=== PATIENT | female | born 1960 | race African-American/Black ===

== ENCOUNTER 2018-02-12 18:32 | Emergency (ER) | END 2018-02-12 22:05 | disposition home or self-care (01) ==

== ENCOUNTER 2018-02-20 11:02 | Emergency (ER) | END 2018-02-20 11:31 | disposition home or self-care (01) ==

== ENCOUNTER 2018-10-27 09:59 | Inpatient (IN) | payer OTHER ==
[2018-10-27] VITALS (26 sets, daily range): BP systolic 118–165; BP diastolic 61–95; PULSE 56–78; RESP 14–48; Ht 162.6 cm; Wt 60.0 kg
[~2018-10-27] VITALS: Ht 162.6 cm; Wt 60.0 kg
[~2018-10-27 09:59] MED LIST: BACI28.34 TOP; CHOL100062 PO; FOLI-49 PO; HYDR-4011 PO; MET25 PO; PRED2.5T3 PO; SOD CHLORIDE 0.9% 1,000 ML IV SCH
[2018-10-27] MEDS ORDERED: FER325 PO (10:42)
[2018-10-27] MEDS ORDERED: PRED2.5T3 PO (10:42)
[2018-10-27] MEDS ORDERED: FOLI-49 PO (10:43)
[2018-10-27] MEDS ORDERED: OMEP40CA6 PO (10:43)
[2018-10-27] MEDS ORDERED: MET25 PO (10:45)
[2018-10-27] MEDS ORDERED: ASCO500C7 PO (10:46)
[2018-10-27] MEDS ORDERED: ERGO500013 PO (10:46)
[2018-10-27] MEDS ORDERED: IBUP-1542 PO (10:47)
[2018-10-27] MEDS ORDERED: CLINDAMYCIN 600 MG/D5W (PMX) 50 ML IVPB SCH (11:00)
[2018-10-27] MEDS ORDERED: SOD CHLORIDE 0.9% 1,000 ML IV SCH (11:00)
--- NOTE | 2018-10-27 12:19 | PREAC ---
Date/Time of Note Date/Time of Note DATE: 10/27/18 TIME: 12:17 Anesthesia Eval and Record Evaluation Time Pre-Procedure Interview DATE: 10/27/18 TIME: 12:17 Age 58 Sex female NPO: 8 hrs Preoperative diagnosis Cholelithiasis Planned procedure Laparoscopic Cholecystectomy Past Medical History Past Medical History: Includes Musculoskeletal: Rheumatoid arthritis Surgery & Anesthesia Issues No known issue Meds Anticoagulation: No Beta Lio within 24 hr: No Reason Beta Lio not given: Pt. not on B-Lio Reported Medications Ibuprofen* (Motrin*) 600 Mg Tab, 600 MG PO BID PRN for PAIN, TAB 10/27/18 Ascorbic Acid* (Vitamin C*) 500 Mg Capsule.sa, 500 MG PO DAILY, CAP 10/27/18 Ergocalciferol (Vitamin D2) (VITAMIN D2) 50,000 Unit Capsule, 66568 UNIT PO EVERY THURSDAY, CAP 10/27/18 Methotrexate* (Methotrexate*) 2.5 Mg Tab, 15 MG PO EVERY THURSDAY, TAB 10/27/18 Folic Acid* (Folic Acid*) 1 Mg Tablet, 1 MG PO DAILY, TAB 10/27/18 Omeprazole* (Omeprazole*) 40 Mg Capsule.dr, 40 MG PO DAILY, #30 CAP 10/27/18 Ferrous Sulfate* (Ferrous Sulfate*) 325 Mg Tabec, 325 MG PO DAILY, TAB 10/27/18 Prednisone* (Prednisone*) 2.5 Mg Tablet, 2.5 MG PO DAILY, TAB 10/27/18 Discontinued Reported Medications Methotrexate* (Methotrexate*) 2.5 Mg Tab, 5 MG PO TID, TAB 06/01/15 Prednisone* (Prednisone*) 2.5 Mg Tablet, 7.5 MG PO DAILY, TAB 06/01/15 Cholecalciferol* (Vitamin D3*) 1,000 Unit Tablet, 1000 UNIT PO q week 05/17/13 Folic Acid* (Folic Acid*) 1 Mg Tablet, 1 MG PO DAILY 05/17/13 Discontinued Scripts Bacitracin* (Bacitracin Zinc Oint*) 28.35 Gm Oint, 1 APPLIC TOP BID, #1 TUB APPLI TO Prov:LIBERTAD GOMEZ PA-C 02/12/18 Hydrocodone/Acetaminophen ([place] 5-325 Tablet) 1 Each Tablet, 1 TAB PO Q6H PRN for PAIN, #7 TAB Prov:LIBERTAD GOMEZ PA-C 02/12/18 Current Medications Clindamycin HCl/ Dextrose 50 ml @ 100 mls/hr ONCE IVPB ; Start 10/27/18 at 11:00; Stop 10/27/18 at 16:00 Sodium Chloride 1,000 ml @ 75 mls/hr [id number] IV ; Start 10/27/18 at 11:00 Meds reviewed: Yes Allergies Coded Allergies: levofloxacin (Verified Allergy, Intermediate, Itching, 10/27/18) ondansetron (Unverified Allergy, Intermediate, "tongue swollen", 10/27/18) RE-ENTERED UNCODED ALLERGY CODED Penicillins (Verified Allergy, Unknown, tongue swelling, 10/27/18) Sulfa (Sulfonamide Antibiotics) (Unverified Allergy, Unknown, "swelling", 10/27/18) RE-ENTERED UNCODED ALLERGY CODED Allergies Reviewed: Yes Labs/Studies Labs Reviewed: Reviewed by anesthesiologist Result Diagram: 10/27/18 1100 Laboratory Tests 10/27/18 11:00 test: N/A Studies: ECG (NSR), CXR (n/a) Pre-procedure Exam Last vitals Vital Signs Date Temp Pulse Resp B/P (MAP) Pulse Ox O2 O2 Flow FiO2 Time Delivery Rate 10/27/18 99.0 69 16 118/69 100 Room Air 11:17 (85) Airway: Adequate mouth opening, Adequate thyromental dist Mallampati: Mallampati II Teeth: Normal Lung: Normal Heart: Normal ASA Physical Status ASA physical status: 2 Emergency: None Planned Anesthetic General/MAC: ETT Nerve block: TAP (bilateral) Planned Pain Management Single shot nerve block, Parenteral pain med Pre-operative Attestations Prior to commencing anesthesia and surgery, the patient was re-evaluated, there was verification of: *The patient's identity *The results of appropriate recent lab work and preoperative vital signs *The above evaluation not changing prior to induction *Anesthetic plan, risk benefits, alternative and complications discussed with patient/family; questions answered; patient/family understands, accepts and wishes to proceed. EDGAR WHYTE MD Oct 27, 2018 12:19
[2018-10-27] MEDS ORDERED: BUPIVACAINE 0.25% (MPF) 30 ML INJ ONE (12:22)
[2018-10-27] MEDS ORDERED: MEPERIDINE 25 MG INJ IV PRN (12:30)
[2018-10-27] MEDS ORDERED: DIPHENHYDRAMINE 50 MG INJ IV PRN (12:30)
[2018-10-27] MEDS ORDERED: LABETALOL HCL 20MG INJ IV PRN (12:30)
[2018-10-27] MEDS ORDERED: FENTAnyl 50 MCG/ML VIAL IV PRN ×2 (12:30)
[2018-10-27] MEDS ORDERED: ONDANSETRON 4 MG INJ IV PRN (12:30)
[2018-10-27] MEDS ORDERED: EPHEDrine SULFATE 50 MG/5 ML SYG IV PRN (12:30)
[2018-10-27] MEDS ORDERED: OXYCODONE/ACETAMINOPHEN (5/325) TAB PO PRN (12:30)
[2018-10-27] MEDS ORDERED: METOCLOPRAMIDE 10 MG INJ IV PRN (12:30)
[2018-10-27] MEDS ORDERED: HYDROmorphONE 1 MG/5 ML IV SYRINGE IV PRN ×2 (12:30)
[2018-10-27] MEDS ORDERED: FENTAnyl 50 MCG/ML VIAL ONE ×2 (12:31→15:13)
[2018-10-27] MEDS ORDERED: CEFAZOLIN 1 GM INJ ONE (12:31)
[2018-10-27] MEDS ORDERED: PROPOFOL 20 ML ONE (12:31)
[2018-10-27] MEDS ORDERED: ROCURONIUM 50 MG INJ ONE (12:31)
[2018-10-27] MEDS ORDERED: MIDAZOLAM 1 MG/ML 2 ML INJ ONE (12:31)
[2018-10-27] MEDS ORDERED: ROPIVACAINE 0.2% 20 ML VIAL ONE (12:32)
[2018-10-27] MEDS ORDERED: HYDROCORTISONE 100 MG INJ ONE (12:39)
--- NOTE | 2018-10-27 13:08 | HPN ---
Date/Time of Note Date/Time of Note DATE: 10/27/18 TIME: 13:08 Interval H&P Admission Note Pt. seen H&P reviewed: No system changes ANANTH JARAMILLO MD Oct 27, 2018 13:08
[2018-10-27] MEDS ORDERED: METOCLOPRAMIDE 10 MG INJ ONE (14:39)
[2018-10-27] MEDS ORDERED: DEXAMETHASONE 4 MG/ML 5 ML INJ ONE (14:39)
[2018-10-27] MEDS ORDERED: ONDANSETRON 4 MG INJ ONE (14:39)
[2018-10-27] MEDS ORDERED: SUGAMMADEX SODIUM 200 MG/2 ML VIAL IV ONE (15:31)
--- NOTE | 2018-10-27 15:49 | PAC ---
Date/Time of Note Date/Time of Note DATE: 10/27/18 TIME: 15:49 Post-Anesthesia Notes Post-Anesthesia Note Last documented vital signs T: 98.0 Activity: WNL Respiratory function: WNL Cardiovascular function: WNL Mental status: Baseline Pain reasonably controlled: Yes Hydration appropriate: Yes Nausea/Vomiting absent: Yes EDGAR WHYTE MD Oct 27, 2018 15:49
[2018-10-27] MEDS: FENTAnyl 50 MCG/ML VIAL IV PRN ×2 (15:53→17:17)
--- NOTE | 2018-10-27 15:57 | OPR ---
Date/Time of Note Date/Time of Note DATE: 10/27/18 TIME: 15:43 Operative Report Procedure Date: Oct 27, 2018 Preoperative Diagnosis 1. Chronic cholecystitis/cholelithiasis Postoperative Diagnosis 1. Chronic cholecystitis/cholelithiasis 2. Chylous ascites 3. Transverse colon nodules Operation/Procedure Performed 1. Diagnostic laparoscopy 2. Exploratory laparotomy 3. Drainage of chylous ascites 4. Biopsy of transverse colon mesenteric nodules x3 5. Open cholecystectomy Surgeon see signature line Joint Cutter Raul Odell MD Second Joint Cutter: LIUDMILA LIMON Anesthesia Type: general Anesthesiologist: EDGAR WHYTE MD Estimated Blood Loss: minimal Transfusion none Specimen 1. Gallbladder 2. Transverse colon mesentery biopsies x3 3. Cytology chylous ascites Grafts/Implants none Complications none Pt Condition Post Procedure: stable Disposition: PACU Indications The patient is a 58-year-old female with a history of rheumatoid arthritis on chronic prednisone as well as hysterectomy and tubal ligation who presented to the office with right upper quadrant abdominal pain. The patient had clinical signs and symptoms of chronic cholecystitis and biliary colic which was confirmed via an ultrasound which showed the presence of gallstones. The patient was scheduled for laparoscopic cholecystectomy; possible open as definitive treatment to prevent further sequelae of gallstone disease which include but are not limited to: Gangrenous cholecystitis, choledocholithiasis, gallstone pancreatitis, ascending cholangitis, etc. All risks and benefits of the procedure including but not limited to: Wound infection, excessive bleeding, common bile duct injury, postoperative biliary leak, retained common bile duct stone, injury to intra-abdominal organs, conversion to open procedure, possible need for subsequent surgeries, etc. were all explained to the patient in full detail. She fully understood and wished to proceed with the procedure. Informed consent was therefore obtained. Procedure Description The patient was brought to the operating room and placed supine on the operating table. Bilateral sequential compression devices were placed on both lower extremities. A dose of broad-spectrum perioperative intravenous antibiotics was given. After the induction of smooth general endotracheal anesthesia the patient's abdomen was prepped and draped in the standard surgical fashion. The patient had a lower midline incision from her prior surgery. After performance of the surgical timeout a 1 cm incision was made inferior to the umbilicus in the area of the prior incision. Incision was carried down through the skin and subcutaneous tissues to the level of the anterior rectus fascia. Anterior rectus fascia was then grasped between 2 [place] clamps and incised using an 11 blade scalpel. The peritoneum was then entered atraumatically. A 12 mm trocar was then placed through the incision site. Pneumoperitoneum was then obtained. Diagnostic laparoscopy showed the abdomen to be filled diffusely with milky fluid. There were adhesions visualized. The gallbladder could not be visualized. At this point it was decided to perform an expiratory laparotomy. Pneumoperitoneum was released and the 12 mm trocar was withdrawn. The patient's prior midline incision was opened using a 10 blade scalpel and extended to the superior to the umbilicus. Incision was carried down through the skin and subcutaneous tissues to the anterior rectus fascia which was incised. The peritoneum was entered atraumatically. Approximately 1.5 L of thick milky fluid which resembled chyle was aspirated. At this point assistance was called for from Dr. Raul Odell who then scrubbed in and assisted. Intraoperative pathological consultation was called for cytological analysis of the fluid. There was no malignant cells identified. Once all the fluid was suctioned out attempts were made to run the small bowel. There was reactive inflammation throughout the peritoneal cavity of the small and large intestine as well as the stomach and the gallbladder which was identified in the right upper quadrant. There were perihepatic adhesions to the surface of the liver to the anterior abdominal wall. A portion of the small bowel and large bowel that was run and examined did not show any injury. There were no enteric contents in the abdominal cavity. There is no evidence of infection in the abdominal cavity. A few small fibrotic-looking nodules were identified in the transverse colon mesentery. These were biopsied. Frozen section was performed by the pathologist and was shown to contain fibrous tissues without any malignancy. The uterus and bilateral fallopian tubes were absent. There was no other pathology grossly identified within the abdominal cavity. At this point it was decided to perform the cholecystectomy. The gallbladder was mobilized from the top down using a combination of Bovie electrocautery and hand-held LigaSure device. Dissection was taken down to the level of the gallbladder neck. Gallstones were palpated within the gallbladder. Bleeders were ligated using combination of hemoclips and Bovie electrocautery. Once we reached the neck of the gallbladder and the cystic duct structures were encircled using a right angle clamp. Clips were placed proximally and the distal cystic duct and artery were transected en bloc using firing of the SHAYNE stapler. The gallbladder was then passed off the field specimen. The abdomen was then copiously irrigated in all 4 quadrants using several liters of warm irrigation until the irrigant returned clear. Hemostasis was inspected for and noted to be adequate. Fibrillar was placed in the gallbladder fossa to aid in further hemostasis. The anterior rectus fascia was then reapproximated using a #1 looped PDS suture in running fashion. Subcutaneous tissues were irrigated with more warm normal saline. The skin was reapproximated using skin marcia. The incision was cleaned and sterile dressings were applied. The patient was awoken from anesthesia and transported to the recovery room in stable condition. All counts were correct at the end of the case x 2. ANANTH JARAMILLO MD Oct 27, 2018 15:56
[2018-10-27] MEDS ORDERED: morphine 2 MG INJ IV PRN (16:00)
[2018-10-27] MEDS ORDERED: ACETAMINOPHEN 325 MG TAB PO PRN (16:00)
[2018-10-27] MEDS: HYDROmorphONE 1 MG/5 ML IV SYRINGE IV PRN ×2 (16:24→17:54)
--- NOTE | 2018-10-27 18:11 | HP ---
Date/Time of Note Date/Time of Note DATE: 10/27/18 TIME: 18:02 Assessment/Plan VTE Prophylaxis Risk score (from Ns)>0 risk: 6 SCD applied (from Ns): Yes Pharmacological prophylaxis: NA/contraindicated Pharm contraindication: surgical contra Lines/Catheters [facility] Peripheral IV Assessment/Plan Assessment/Plan - Chronic cholecystitis/cholelithiasis, Chylous ascites, Transverse colon nodules. S/p diagnostic laparoscopy, exploratory laparotomy, drainage of chylous ascites, biopsy of transverse colon mesenteric nodules and open cholecystectomy by on 10/27/2018. Continue IV fluids and postoperative antibiotic, pain management, patient is n.p.o., advance diet per surgery. - Rheumatoid arthritis, patient is on prednisone and methotrexate. Further recommendations based on clinical course. Plan of care discussed with Dr. Pruitt. Result Diagram: 10/27/18 1100 Results 24hrs Laboratory Tests Test 10/27/18 11:00 Sodium Level 145 H Potassium Level 3.5 Chloride Level 108 Carbon Dioxide Level 27 Anion Gap 10 Blood Urea Nitrogen 14 Creatinine 0.60 Est Glomerular Filtrat Rate mL/min > 60 Glucose Level 88 Calcium Level 9.2 HPI/ROS Admit Date/Time Admit Date/Time Oct 27, 2018 at 15:43 Hx of Present Illness The patient is a 58-year-old female with history of rheumatoid arthritis on prednisone at home. Patient was evaluated in general surgery consultation for right upper quadrant abdominal pain. Patient symptoms consistent with chronic cholecystitis and biliary colic's. Ultrasound revealed presence of gallstones. Patient was brought to the hospital and underwent diagnostic laparoscopy, exploratory laparotomy, drainage of chylous ascites, biopsy of transverse colon mesenteric nodules and open cholecystectomy by Dr. Wright. Postoperatively patient complains of significant abdominal pain. Patient will be admitted for further evaluation and management. ROS 12 point review of systems is negative except for what mentioned in HPI PMH/Family/Social Past Medical History Medical History: other (Rheumatoid arthritis) Medications Current Medications Hydromorphone HCl (Dilaudid) 0.2 mg PACU PRN IV MILD PAIN LEVEL 1-3 Last administered on 10/27/18at 17:54; Admin Dose 0.2 MG; Start 10/27/18 at 12:30; Stop 10/27/18 at 20:00 Hydromorphone HCl (Dilaudid) 0.4 mg PACU PRN IV MODERATE PAIN LEVEL 4-6; Start 10/27/18 at 12:30; Stop 10/27/18 at 20:00 Hydromorphone HCl (Dilaudid) 0.6 mg PACU PRN IV SEVERE PAIN LEVEL 7-10; Start 10/27/18 at 12:30; Stop 10/27/18 at 20:00 Fentanyl (Sublimaze) 25 mcg PACU ORDER PRN IV MILD PAIN LEVEL 1-3; Start 10/27/18 at 12:30; Stop 10/27/18 at 20:00 Fentanyl (Sublimaze) 50 mcg PACU ORDER PRN IV MODERATE PAIN LEVEL 4-6 Last administered on 10/27/18at 17:17; Admin Dose 50 MCG; Start 10/27/18 at 12:30; Stop 10/27/18 at 20:00 Fentanyl (Sublimaze) 75 mcg PACU ORDER PRN IV SEVERE PAIN LEVEL 7-10; Start 10/27/18 at 12:30; Stop 10/27/18 at 20:00 Oxycodone/ Acetaminophen (Percocet (5/ 325)) 1 tab PACU ORDER PRN PO PAIN LEVEL 1-5; Start 10/27/18 at 12:30; Stop 10/27/18 at 20:00 Metoclopramide HCl (Reglan) 10 mg PACU ORDER PRN IV NAUSEA AND/OR VOMITING Last administered on 10/27/18at 15:53; Admin Dose 10 MG; Start 10/27/18 at 12:30; Stop 10/27/18 at 20:00 Labetalol HCl (Labetalol) 5 mg PACU ORDER PRN IV ELEVATED BLOOD PRESSURE; Start 10/27/18 at 12:30; Stop 10/27/18 at 20:00 Ephedrine Sulfate 5 mg PACU ORDER PRN IV BLOOD PRESSURE SUPPORT; Start 10/27/18 at 12:30; Stop 10/27/18 at 20:00 Meperidine HCl (Demerol) 25 mg PACU ORDER PRN IV POST OPERATIVE SHIVERING Last administered on 10/27/18at 15:58; Admin Dose 25 MG; Start 10/27/18 at 12:30; Stop 10/27/18 at 20:00 Diphenhydramine HCl (Benadryl) 25 mg PACU ORDER PRN IV PRURITUS; Start 10/27/18 at 12:30; Stop 10/27/18 at 20:00 Morphine Sulfate (morphine) 2 mg Q2H PRN IV PAIN LEVEL 6-10; Start 10/27/18 at 16:00 Oxycodone/ Acetaminophen (Percocet (5/ 325)) 1 tab Q6H PRN PO PAIN LEVEL 4-6; Start 10/27/18 at 16:00 Acetaminophen (Tylenol Tab) 650 mg Q6H PRN PO MILD PAIN(1-3)OR ELEVATED TEMP; Start 10/27/18 at 16:00 Famotidine (Pepcid Iv) 20 mg Q12 IV ; Start 10/27/18 at 21:00 Sodium Chloride 1,000 ml @ 100 mls/hr Q10H IV ; Start 10/27/18 at 15:34 Oxycodone/ Acetaminophen (Percocet (5/ 325)) 2 tab Q4H PRN PO MODERATE PAIN LEVEL 7-10; Start 10/27/18 at 16:00 Hydrocortisone (Solu-Cortef) 100 mg Q8 IV ; Start 10/27/18 at 22:00; Stop 10/28/18 at 06:01 Coded Allergies: levofloxacin (Verified Allergy, Intermediate, Itching, 10/27/18) ondansetron (Unverified Allergy, Intermediate, "tongue swollen", 10/27/18) RE-ENTERED UNCODED ALLERGY CODED Penicillins (Verified Allergy, Unknown, tongue swelling, 10/27/18) Sulfa (Sulfonamide Antibiotics) (Unverified Allergy, Unknown, "swelling", 10/27/18) RE-ENTERED UNCODED ALLERGY CODED Past Surgical History Past Surgical Hx: other (Status post cataract surgery status post tubal ligation status post partial hysterectomy, status post bilateral cataract surgery) Social History Alcohol Use: occasionally Smoking Status: Never smoker Drug Use: marijuana (Smokes marijuana occasionally) Exam/Review of Systems Vital Signs Vitals Vital Signs Date Temp Pulse Resp B/P (MAP) Pulse Ox O2 O2 Flow FiO2 Time Delivery Rate 10/27/18 74 17 145/78 100 Nasal 17:35 (100) Cannula 10/27/18 4.0 16:00 10/27/18 99.0 11:17 Intake and Output 10/26/18 10/26/18 10/27/18 1515:00 23:00 07:00 IntakeIntake Total 2200 ml BalanceBalance 2200 ml Exam Constitutional: alert, oriented Head: normocephalic Eyes: nl conjunctiva Neck: supple Respiratory: clear to auscultation Cardiovascular: regular rate and rhythm Gastrointestinal: soft, other (Status post surgery) Musculoskeletal: nl extremities to inspection Extremities: normal pulses Neurological: nl mental status Skin: nl DELMA Tavares Oct 27, 2018 18:11
[2018-10-27] MEDS: OXYCODONE/ACETAMINOPHEN (5/325) TAB PO PRN (21:14)
--- NOTE | 2018-10-27 21:18 | NUR ---
vss pt in considerable amt of pain upon waking; pain medication given mepilex dressing on abdomen; c/d/i 16:00 Dr. Wright @ bedside 16:[address] Pruitt office for consult [place] prescription in the chart along with copy 17:30 sonRaul @ bedside 18:00 NGUYỄN Martinez @ bedside to assess pt 19:30 daughter notified via phone of room number and pt's condition gave report to DORIS Kyle; he asked if I can contact Michelle ADRIAN for more pain meds for floor I paged Michelle overhead; no response; left vm for Michelle; no response room 407 still being cleaned per DORIS Kyle 20:45 room 407 ready per Kanchan, 4th floor Yuriy truong took patient to the room 407 Addendum: 10/27/18 at 2246 by PAOLO DAIGLE RN belongings sent up with Maricarmen; field secretaryKanchan confirmed receiving belongings
[2018-10-27] MEDS: morphine SULFATE/PF (2 MG/2 ML) SYG IV PRN (21:38)
[2018-10-27] MEDS: SOD CHLORIDE 0.9% 1,000 ML IV SCH ×2 (23:41→23:59)
[2018-10-27] MEDS: HYDROCORTISONE 100 MG INJ IV SCH (23:41)
[2018-10-27] MEDS: FAMOTIDINE 20 MG INJ IV SCH (23:41)
[2018-10-28 00:18] VITALS: BP 144/76; PULSE 72; RESP 18
[2018-10-28] MEDS: morphine SULFATE/PF (2 MG/2 ML) SYG IV PRN ×5 (01:54→14:03)
[2018-10-28 04:27] VITALS: BP 158/76; PULSE 66; RESP 18
[2018-10-28] MEDS: PANTOPRAZOLE (EC) 40 MG TAB PO SCH ×2 (06:00→08:41)
[2018-10-28] MEDS: HYDROCORTISONE 100 MG INJ IV SCH (06:10)
--- NOTE | 2018-10-28 06:34 | NUR ---
NRSG NOTE: PT IN BED, ASLEEP, EASILY AROUSED. AOX4. NO ACUTE DISTRESS NOTED. NO SOB. VSS. PAIN MGMT EFFECTIVE. ABD SURGICAL INCISION WITH HILDA, MEPILEX NOTED. AMBULATED TO BATHROOM. X2 STEROID DOSES ADMINISTERED AND COMPLETED. NPO OBSERVED UNTIL DINNER. PT RESTING COMFORTABLY.
[2018-10-28 07:53] VITALS: BP 139/75; PULSE 67; RESP 18
[2018-10-28] MEDS: FAMOTIDINE 20 MG INJ IV SCH ×2 (08:42→19:59)
[2018-10-28] MEDS: ASCORBIC ACID 500 MG TAB PO SCH (09:00)
[2018-10-28] MEDS: FOLIC ACID 1 MG TAB PO SCH (09:00)
[2018-10-28] MEDS ORDERED: ASCORBIC ACID 500 MG TAB PO SCH (09:00)
[2018-10-28] MEDS: FERROUS SULFATE (EC) 325 MG TAB PO SCH (09:00)
--- NOTE | 2018-10-28 09:26 | PN ---
Date/Time of Note Date/Time of Note DATE: 10/28/18 TIME: 09:23 Assessment/Plan Lines/Catheters IV [facility]ter Type (from [facility]): Peripheral IV Assessment/Plan Assessment/Plan 58-year-old female status post exploratory laparotomy, drainage of chylous ascites, cholecystectomy postop day #1 * Advance to clear liquid diet * Hep-Lock IV fluids * Out of bed/incentive spirometry/physical therapy * LFTs are okay * Etiology of chylous ascites unclear. On further questioning, patient states that after her hysterectomy which was last year she had an episode of abdominal distention for which a workup was done and 3 L of milky fluid was drained. She was told at that time that it was likely due to her rheumatoid arthritis. * Continue medical management Subjective 24 Hr Interval Summary Feeling better. Pain controlled. Afebrile. Exam/Review of Systems Vital Signs Vitals Vital Signs Date Temp Pulse Resp B/P (MAP) Pulse Ox O2 O2 Flow FiO2 Time Delivery Rate 10/28/18 98.7 67 18 139/75 96 07:53 (96) 10/27/18 Nasal 2.0 20:40 Cannula Intake and Output 10/27/18 10/27/18 10/28/18 1515:00 23:00 07:00 IntakeIntake Total 500 ml OutputOutput Total 1400 ml BalanceBalance -1400 ml 500 ml Exam Free Text/Dictation GENERAL: Awake, alert, oriented x 3. No acute distress. SKIN: No jaundice. HEENT: PERRLA, EOMI, No Scleral Icterus NECK: Supple without JVD CARDIOVASCULAR: S1S2, regular rate and rhythm. No murmurs appreciated. RESPIRATORY: Clear to auscultation bilaterally. ABDOMEN: Soft, bowel sounds present, nondistended, nontender to palpation. DRESSING: Clean, dry EXTREMITIES: Changes of rheumatoid arthritis present Results Result Diagram: 10/28/18 0444 10/28/18 0444 ANANTH JARAMILLO MD Oct 28, 2018 09:26
[2018-10-28] MEDS: SOD CHLORIDE 0.9% 1,000 ML IV SCH ×2 (11:34→21:34)
[2018-10-28] MEDS: METOCLOPRAMIDE 10 MG INJ IV PRN ×2 (12:21→19:59)
--- NOTE | 2018-10-28 13:30 | NUR ---
PT evaluation Therapy day number 1 Evaluation Start Time 13:30 Evaluation End Time 14:15 Evaluation Total Time 45 min Subjective Current complaint of pain Pain Scale NUMERIC Pain Intensity 9 (0-10) Patient Stated Goal for Pain Relief 0 (0-10) Pain Level Comment Patient premedicated per RN Pre Treatment Vital Signs Stable Yes Supine to Sit Minimum Assist Transfer Sit to Stand Ability Minimum Assist Bed Mobility Sit to Supine Minimum Assist Bed Transfer Ability Minimum Assist Chair Transfer Ability Minimum Assist Gait Assist Levels Minimum Assist Assistive Devices None Ambulation Distance 25 feet Additional Gait Comments 25' with [employer] INSTRUCTOR for unilateral support, pt presents with high guard gait Static Sitting Balance Fair Dynamic Sitting Balance Fair Standing Static Balance Fair Dynamic Standing Balance Fair Safety Judgement Fair Activity Tolerance Fair Equipment Present A pump IV pump Post Treatment Pain Intensity 9 0-10 Additional Post Treatment Comment See note Total Minutes 45 Total Units 3 PT Technical Record Comment 58 yo female presents s/p laparoscopic cholecystectomy 10/27/18 secondary to gallstone. PMH: rheumatoid arthritis Precautions: fall risk PLOF patient reports mod I at home with no AD but owns FWW and SPC. Patient lives in 2nd floor apartment with daughter and brother who are able to assist PRN. S: Pt in bed, agreeable to OOB activity with encouragement, pt cleared for activity per RN O: PT evaluation completed, pt returned back to bed in direct care of RN with all needs met and bed alarm activated. Reports of pain with mobility, no dizziness, or shortness of breath with activity. Patient educated on mobility and importance of physical therapy. Spoke to RN regarding pt response to activity and PT plan of care. A: Patient presents with fair mobility however limited secondary to pain. patient often looks for assistance if available and with upright posture presents with high guard gait. Patient requires use of UE support to maintain balance in standing, and to recommend use of FWW with nursing. Patient and RN educated on use of commode for toileting due to pain. Patient could benefit from skilled inpatient PT to improve strength, endurance, and functional mobility. P: Progress gait with SPC Recommendation: home with family assist when medically cleared by MD. Pt owns all necessary DME required for safe mobility
--- NOTE | 2018-10-28 14:31 | PN ---
Date/Time of Note Date/Time of Note DATE: 10/28/18 TIME: 14:28 Assessment/Plan VTE Prophylaxis Risk score (from Ns)>0 risk: 2 SCD applied (from Ns): Yes Pharmacological prophylaxis: NA/contraindicated Pharm contraindication: surgical contra Lines/Catheters IV Catheter Type (from [facility]): Peripheral IV Assessment/Plan Hospital Course Patient is started on clear liquid diet, complains of mild nausea no emesis complaints of abdominal pain, continue current pain management. Encourage incentive spirometer use, PT eval and treatment. Assessment/Plan - Chronic cholecystitis/cholelithiasis, Chylous ascites, Transverse colon nodules. S/p diagnostic laparoscopy, exploratory laparotomy, drainage of chylous ascites, biopsy of transverse colon mesenteric nodules and open cholecystectomy by on 10/27/2018. Continue IV fluids and postoperative antibiotic, pain management, patient is n.p.o., advance diet per surgery. - Rheumatoid arthritis, patient is on prednisone and methotrexate. Further recommendations based on clinical course. Plan of care discussed with Dr. Pruitt. Result Diagram: 10/28/18 0444 10/28/18 0444 Results 24hrs Laboratory Tests Test 10/28/18 04:44 White Blood Count 4.2 #L Red Blood Count 2.90 L Hemoglobin 9.5 L Hematocrit 29.7 L Mean Corpuscular Volume 102.4 H Mean Corpuscular Hemoglobin 32.8 Mean Corpuscular Hemoglobin Concent 32.0 Red Cell Distribution Width 15.6 H Platelet Count 83 L Mean Platelet Volume 12.6 #H Immature Granulocytes % 0.200 Neutrophils % 90.6 H Lymphocytes % 2.6 L Monocytes % 6.6 Eosinophils % 0.0 Basophils % 0.0 Nucleated Red Blood Cells % 0.0 Immature Granulocytes # 0.010 Neutrophils # 3.8 Lymphocytes # 0.1 L Monocytes # 0.3 Eosinophils # 0.0 Basophils # 0.0 Nucleated Red Blood Cells # 0.0 Sodium Level 138 Potassium Level 3.9 Chloride Level 109 Carbon Dioxide Level 22 Anion Gap 7 Blood Urea Nitrogen 12 Creatinine 0.54 Est Glomerular Filtrat Rate mL/min > 60 Glucose Level 141 # Calcium Level 8.6 Total Bilirubin 0.2 Direct Bilirubin 0.00 Indirect Bilirubin 0.2 Aspartate Amino Transf (AST/SGOT) 38 Alanine Aminotransferase (ALT/SGPT) 16 Alkaline Phosphatase 60 Total Protein 7.9 Albumin 3.2 L Globulin 4.70 H Albumin/Globulin Ratio 0.68 Exam/Review of Systems Vital Signs Vitals Vital Signs Date Temp Pulse Resp B/P (MAP) Pulse Ox O2 O2 Flow FiO2 Time Delivery Rate 10/28/18 98.7 67 18 139/75 96 07:53 (96) 10/27/18 Nasal 2.0 20:40 Cannula Intake and Output 10/27/18 10/27/18 10/28/18 1515:00 23:00 07:00 IntakeIntake Total 500 ml OutputOutput Total 1400 ml BalanceBalance -1400 ml 500 ml Exam Constitutional: alert, oriented Respiratory: clear to auscultation Cardiovascular: nl pulse Gastrointestinal: soft, other (Status post surgery) Musculoskeletal: nl extremities to inspection Extremities: normal pulses Neurological: nl mental status Skin: nl turgor Medications Medications Current Medications Oxycodone/ Acetaminophen (Percocet (5/ 325)) 1 tab Q6H PRN PO PAIN LEVEL 4-6; Start 10/27/18 at 16:00 Acetaminophen (Tylenol Tab) 650 mg Q6H PRN PO MILD PAIN(1-3)OR ELEVATED TEMP; Start 10/27/18 at 16:00 Famotidine (Pepcid Iv) 20 mg Q12 IV Last administered on 10/28/18at 08:42; Admin Dose 20 MG; Start 10/27/18 at 21:00 Sodium Chloride 1,000 ml @ 100 mls/hr Q10H IV Last administered on 10/27/18at 23:41; Admin Dose 100 MLS/HR; Start 10/27/18 at 15:34 Oxycodone/ Acetaminophen (Percocet (5/ 325)) 2 tab Q4H PRN PO MODERATE PAIN LEVEL 7-10; Start 10/27/18 at 16:00 Ascorbic Acid (Vitamin C) 500 mg DAILY PO ; Start 10/28/18 at 09:00 Ergocalciferol (Drisdol) 50,000 unit Sa@0900 PO ; Start 10/30/18 at 09:00 Ferrous Sulfate (Ferrous Sulfate (Ec)) 325 mg DAILY PO ; Start 10/28/18 at 09:00 Folic Acid (Folic Acid) 1 mg DAILY PO ; Start 10/28/18 at 09:00 Prednisone (Prednisone) 2.5 mg DAILY PO ; Start 10/28/18 at 09:00 Pantoprazole (Protonix Tab) 40 mg DAILY@06 PO Last administered on 10/28/18at 08:41; Admin Dose 40 MG; Start 10/28/18 at 06:00 Ascorbic Acid (Vitamin C) 1,000 mg DAILY PO ; Start 10/28/18 at 09:00 Morphine Sulfate (morphine SULFATE (PF)) 2 mg Q2H PRN IV PAIN LEVEL 6-10 Last administered on 10/28/18at 14:03; Admin Dose 2 MG; Start 10/27/18 at 21:30 Metoclopramide HCl (Reglan) 5 mg Q6H PRN IV NAUSEA Last administered on 10/28/18at 12:21; Admin Dose 5 MG; Start 10/28/18 at 09:30 DELMA PRICE Oct 28, 2018 14:31
[2018-10-28 15:16] VITALS: BP 142/78; PULSE 64; RESP 18
[2018-10-28] MEDS: predniSONE 2.5 MG TAB PO SCH (17:52)
--- NOTE | 2018-10-28 19:39 | NUR ---
EOSS: Pt remains in stable condition, slightly more lethargic now, than start of shift. Pt received morphine x3 during shift for pain. Pt reports pain is well managed at this time. VSS and pt A&Ox4. Pt ambulated w/ walker w/ PT. Dressing c/d/i. Pt urinating in bedside commode. Pt denies having passed gas yet. Bed alarm on, SCDs on, call smith within reach.
[2018-10-28] MEDS: morphine 4 MG/ML VIAL IV PRN (20:00)
[2018-10-28 20:01] VITALS: BP 154/79; PULSE 66; RESP 20
--- NOTE | 2018-10-28 21:46 | RADRPT ---
Vent Rate: 60 bpm RR Interval: 0 msec WA Interval: 164 msec QRS Duration: 98 msec QT Interval: 434 msec QTC Interval: 434 msec P-R-T [place]: 60 - 32 - 35 degrees Normal sinus rhythm Normal ECG Electronically Signed By: Esa Best [id number]
[2018-10-29 02:46] VITALS: BP 148/76; PULSE 77; RESP 18
[2018-10-29] MEDS: METOCLOPRAMIDE 10 MG INJ IV PRN ×2 (03:21→08:29)
[2018-10-29] MEDS: morphine 4 MG/ML VIAL IV PRN (03:22)
--- NOTE | 2018-10-29 05:16 | NUR ---
EOSS PATIENT RESTED THROUGHOUT THE NIGHT. MEDICATED FOR PAIN/NAUSEA PRN. ASSISTED TO BEDSIDE COMMODE PRN. VOIDING WELL. NO C/O NAUSEA. BED ALARM ACTIVATED. CALL LIGHT IN REACH. TOLERATING DIET.
[2018-10-29 07:41] VITALS: BP 133/80; PULSE 73; RESP 17
[2018-10-29] MEDS: FAMOTIDINE 20 MG INJ IV SCH ×2 (08:14→23:10)
[2018-10-29] MEDS: FERROUS SULFATE (EC) 325 MG TAB PO SCH (08:14)
[2018-10-29] MEDS: predniSONE 2.5 MG TAB PO SCH (08:14)
[2018-10-29] MEDS: FOLIC ACID 1 MG TAB PO SCH (08:14)
[2018-10-29] MEDS: OXYCODONE/ACETAMINOPHEN (5/325) TAB PO PRN ×3 (08:29→23:10)
--- NOTE | 2018-10-29 09:17 | PN ---
Date/Time of Note Date/Time of Note DATE: 10/29/18 TIME: 09:14 Assessment/Plan Lines/Catheters IV Catheter Type (from Nrs): Saline Lock Bonilla in Place (from Nrs): No Assessment/Plan Assessment/Plan 58-year-old female status post exploratory laparotomy, drainage of chylous ascites, cholecystectomy postop day #2 * Advance to low fat diet * Out of bed/incentive spirometry/physical therapy * LFTs are okay * Etiology of chylous ascites unclear. On further questioning, patient states that after her hysterectomy which was last year she had an episode of abdominal distention for which a workup was done and 3 L of milky fluid was drained. She was told at that time that it was likely due to her rheumatoid arthritis. * Continue medical management Subjective 24 Hr Interval Summary Feels better. Pain controlled. Tolerating clear liquids. Afebrile. Exam/Review of Systems Vital Signs Vitals Vital Signs Date Temp Pulse Resp B/P (MAP) Pulse Ox O2 O2 Flow FiO2 Time Delivery Rate 10/29/18 98.3 73 17 133/80 97 07:41 (97) 10/27/18 Nasal 2.0 20:40 Cannula Intake and Output 10/28/18 10/28/18 10/29/18 1515:00 23:00 07:00 IntakeIntake Total 700 ml 280 ml BalanceBalance 700 ml 280 ml Exam Free Text/Dictation GENERAL: Awake, alert, oriented x 3. No acute distress. SKIN: No jaundice. HEENT: PERRLA, EOMI, No Scleral Icterus NECK: Supple without JVD CARDIOVASCULAR: S1S2, regular rate and rhythm. No murmurs appreciated. RESPIRATORY: Clear to auscultation bilaterally. ABDOMEN: Soft, bowel sounds present, nondistended, nontender to palpation. INCISION: Clean, dry, intact EXTREMITIES: Changes of rheumatoid arthritis present Results Result Diagram: 10/29/18 0436 10/29/18 0436 ANANTH JARAMILLO MD Oct 29, 2018 09:17
[2018-10-29] MEDS: ASCORBIC ACID 500 MG TAB PO SCH (10:12)
--- NOTE | 2018-10-29 12:08 | NUR ---
PT NOTE Addendum: 10/29/18 at 1340 by ASHLEE GONSALEZ RN [facility] Therapy day number 2 Subjective Current complaint of pain Pain Scale FACES Pain Intensity 3 (0-10) Patient Stated Goal for Pain Relief 0 (0-10) Pain Level Comment BUE hands, abdomen, declines to rate Transfer Training Start Time 12:08 Supine to Sit Stand by Assist Transfer Sit to Stand Ability Stand by Assist Bed Transfer Ability Stand by Assist Chair Transfer Ability Stand by Assist Sitting Tolerance 20 min Additional Mobility Comments left sittin gat EOB eating lunch, bed alarm armed, CN informed Transfer Training End Time 12:23 Total Transfer Training Time 15 min (8-127) Gait Training Start Time 12:23 Gait Assist Levels Stand by Assist Assistive Devices Single Point Cane Ambulation Distance 90 feet Additional Gait Comments 90'+90' with seated rest break, no LOB, decreased cad, reciprocal Gait Training End Time 12:38 Total Gait Training Treatment Time 15 min (8-127) Stair Training Start Time 12:38 Stair Climbing Ability Stand by Assist Number of Stairs 12 Stairs Additional Stairs Assist Comments 4 stair x3 with 1HR+SPC and 2HR/no AD, reciprocal, no LOB/buckling Stair Training End Time 12:46 Total Stair Training Time 8 min (8-127) Static Sitting Balance Fair plus Dynamic Sitting Balance Fair plus Standing Static Balance Fair Dynamic Standing Balance Fair Additional Balance Assessments Comments SPC for STS and gait Safety Judgement Fair Activity Tolerance Fair Equipment Present A pump Post Treatment Pain Intensity 3 0-10 Additional Post Treatment Comment See Below Total Treament Time 38 min (8-127) Total Minutes 38 Total Units 3 PT Technical Record Comment PT NOTE S: Pt agreeable to PT, "I feel much better today", cleared for PT per RN. O: Pt received semifowler in bed, sleeping but easily roused,alert and oriented, in no apparent distress. Performed bed mobility, transfer tr, stair tr and gait training per tech record with SBA using SPC. Pt BTB and positioned for comfort sitting at EOB post tx with call light and needs in reach, bed alarm armed, no in no apparent distress. A: Pt wes tx fairly, improved [place] for PT since last tx P: Cont POC
[2018-10-29] MEDS: DOCUSATE SODIUM 100 MG CAP PO SCH ×2 (13:47→23:10)
--- NOTE | 2018-10-29 15:09 | PN ---
Date/Time of Note Date/Time of Note DATE: 10/29/18 TIME: 15:09 Assessment/Plan VTE Prophylaxis Risk score (from Ns)>0 risk: 1 SCD applied (from [facility] [place] Yes SCD contraindicated: other Pharmacological prophylaxis: other Pharm contraindication: other Lines/Catheters IV Catheter Type (from [facility] Saline Lock Urinary Cath still in place: No Assessment/Plan Assessment/Plan - Chronic cholecystitis/cholelithiasis, Chylous ascites, Transverse colon nodules. S/p diagnostic laparoscopy, exploratory laparotomy, drainage of chylous ascites, biopsy of transverse colon mesenteric nodules and open cholecystectomy by on 10/27/2018. Continue IV fluids and postoperative antibiotic, pain management, patient is n.p.o., advance diet per surgery. - Rheumatoid arthritis, patient is on prednisone and methotrexate. Further recommendations based on clinical course. Plan of care discussed with Dr. Pruitt. Result Diagram: 10/29/18 0436 10/29/18 0436 Results 24hrs Laboratory Tests Test 10/29/18 04:36 White Blood Count 4.3 L Red Blood Count 2.78 L Hemoglobin 9.1 L Hematocrit 28.4 L Mean Corpuscular Volume 102.2 H Mean Corpuscular Hemoglobin 32.7 Mean Corpuscular Hemoglobin Concent 32.0 Red Cell Distribution Width 15.9 H Platelet Count 86 L Mean Platelet Volume 12.6 H Immature Granulocytes % 0.500 H Neutrophils % 88.0 H Lymphocytes % 4.8 L Monocytes % 6.7 Eosinophils % 0.0 Basophils % 0.0 Nucleated Red Blood Cells % 0.0 Immature Granulocytes # 0.020 Neutrophils # 3.8 Lymphocytes # 0.2 L Monocytes # 0.3 Eosinophils # 0.0 Basophils # 0.0 Nucleated Red Blood Cells # 0.0 Sodium Level 139 Potassium Level 3.6 Chloride Level 106 Carbon Dioxide Level 26 Anion Gap 7 Blood Urea Nitrogen 12 Creatinine 0.68 Est Glomerular Filtrat Rate mL/min > 60 Glucose Level 110 Calcium Level 8.9 Total Bilirubin 0.5 Direct Bilirubin 0.00 Indirect Bilirubin 0.5 Aspartate Amino Transf (AST/SGOT) 35 Alanine Aminotransferase (ALT/SGPT) 11 L Alkaline Phosphatase 59 Total Protein 7.9 Albumin 3.2 L Globulin 4.70 H Albumin/Globulin Ratio 0.68 Exam/Review of Systems Vital Signs Vitals Vital Signs Date Temp Pulse Resp B/P (MAP) Pulse Ox O2 O2 Flow FiO2 Time Delivery Rate 10/29/18 98.3 73 17 133/80 97 07:41 (97) 10/27/18 Nasal 2.0 20:40 Cannula Intake and Output 10/28/18 10/28/18 10/29/18 1515:00 23:00 07:00 IntakeIntake Total 700 ml 280 ml BalanceBalance 700 ml 280 ml Medications Medications Current Medications Oxycodone/ Acetaminophen (Percocet (5/ 325)) 1 tab Q6H PRN PO PAIN LEVEL 4-6; Start 10/27/18 at 16:00 Acetaminophen (Tylenol Tab) 650 mg Q6H PRN PO MILD PAIN(1-3)OR ELEVATED TEMP; Start 10/27/18 at 16:00 Famotidine (Pepcid Iv) 20 mg Q12 IV Last administered on 10/29/18at 08:14; Admin Dose 20 MG; Start 10/27/18 at 21:00 Oxycodone/ Acetaminophen (Percocet (5/ 325)) 2 tab Q4H PRN PO MODERATE PAIN LEVEL 7-10 Last administered on 10/29/18at 08:29; Admin Dose 2 TAB; Start 10/27/18 at 16:00 Ergocalciferol (Drisdol) 50,000 unit Sa@0900 PO ; Start 10/30/18 at 09:00 Ferrous Sulfate (Ferrous Sulfate (Ec)) 325 mg DAILY PO Last administered on 10/29/18at 08:14; Admin Dose 325 MG; Start 10/28/18 at 09:00 Folic Acid (Folic Acid) 1 mg DAILY PO Last administered on 10/29/18at 08:14; Admin Dose 1 MG; Start 10/28/18 at 09:00 Prednisone (Prednisone) 2.5 mg DAILY PO Last administered on 10/29/18at 08:14; Admin Dose 2.5 MG; Start 10/28/18 at 09:00 Pantoprazole (Protonix Tab) 40 mg DAILY@06 PO Last administered on 10/28/18at 08:41; Admin Dose 40 MG; Start 10/28/18 at 06:00 Ascorbic Acid (Vitamin C) 1,000 mg DAILY PO Last administered on 10/29/18at 10:12; Admin Dose 1,000 MG; Start 10/28/18 at 09:00 Metoclopramide HCl (Reglan) 5 mg Q6H PRN IV NAUSEA Last administered on 10/29/18at 08:29; Admin Dose 5 MG; Start 10/28/18 at 09:30 Morphine Sulfate (morphine) 2 mg Q2H PRN IV PAIN LEVEL 6-10 Last administered on 10/29/18at 03:22; Admin Dose 2 MG; Start 10/28/18 at 20:00 Docusate Sodium (Colace) 100 mg TID PO Last administered on 10/29/18at 13:47; Admin Dose 100 MG; Start 10/29/18 at 13:00 SARA NEGRETE Oct 29, 2018 15:09
--- NOTE | 2018-10-29 17:01 | NUR ---
End of shift: Diet advanced to low fat/low cholesterol diet. Dr Wright came and chabged surgical wound. Ambulated [address] with physical therapy
[2018-10-29 20:05] VITALS: BP 130/70; PULSE 77; RESP 20
[2018-10-30 02:33] VITALS: BP 135/70
--- NOTE | 2018-10-30 05:41 | NUR ---
EOSS PATIENT RESTED VERY WELL THROUGHOUT THE NIGHT. MEDICATED FOR PAIN WITH PO MEDICATIONS PRN. ASSISTED TO BEDSIDE COMMODE PRN. VOIDING WELL. NO C/O NAUSEA. BED ALARM ACTIVATED. CALL LIGHT IN REACH. TOLERATING ADVANCED DIET.
[2018-10-30] MEDS: PANTOPRAZOLE (EC) 40 MG TAB PO SCH (06:45)
--- NOTE | 2018-10-30 06:56 | NUR ---
EOSS: RECEIVED REPORT FROM KAROL FOR CONTINUITY OF CARE AT 11 PM. PATIENT STABLE DURING SHIFT, DENIES PAIN. NEEDS MET & ATTENDED. WILL CONTINUE WITH POC.
[2018-10-30 07:47] VITALS: BP 126/72; PULSE 83; RESP 18
[2018-10-30] MEDS ORDERED: ERGOCALCIFEROL 50,000 UNIT CAP PO SCH (09:00)
[2018-10-30] MEDS: FAMOTIDINE 20 MG INJ IV SCH ×2 (09:00→09:47)
--- NOTE | 2018-10-30 09:14 | PN ---
Date/Time of Note Date/Time of Note DATE: 10/30/18 TIME: 09:13 Assessment/Plan Lines/Catheters IV Catheter Type (from [facility]): Saline Lock Bonilla in Place (from [facility]): No Assessment/Plan Assessment/Plan 58-year-old female status post exploratory laparotomy, drainage of chylous ascites, cholecystectomy postop day #3 * Out of bed/incentive spirometry/physical therapy * Etiology of chylous ascites unclear. On further questioning, patient states that after her hysterectomy which was last year she had an episode of abdominal distention for which a workup was done and 3 L of milky fluid was drained. She was told at that time that it was likely due to her rheumatoid arthritis. * Continue medical management * Possible DC home in a.m. if remains stable. Subjective 24 Hr Interval Summary No acute events overnight. Tolerating diet, though decreased appetite. Afebrile. No bowel movement. Exam/Review of Systems Vital Signs Vitals Vital Signs Date Temp Pulse Resp B/P (MAP) Pulse Ox O2 O2 Flow FiO2 Time Delivery Rate 10/30/18 98.4 83 18 126/72 99 07:47 (90) 10/27/18 Nasal 2.0 20:40 Cannula Intake and Output 10/29/18 10/29/18 10/30/18 1515:00 23:00 07:00 IntakeIntake Total 600 ml OutputOutput Total 400 ml BalanceBalance 200 ml Exam Free Text/Dictation GENERAL: Awake, alert, oriented x 3. No acute distress. SKIN: No jaundice. HEENT: PERRLA, EOMI, No Scleral Icterus NECK: Supple without JVD CARDIOVASCULAR: S1S2, regular rate and rhythm. No murmurs appreciated. RESPIRATORY: Clear to auscultation bilaterally. ABDOMEN: Soft, bowel sounds present, nondistended, nontender to palpation. INCISION: Clean, dry, intact EXTREMITIES: Changes of rheumatoid arthritis present Results Result Diagram: 10/30/1844110/30/18441 ANANTH JARAMILLO MD Oct 30, 2018 09:14
[2018-10-30] MEDS ORDERED: BISACODYL (EC) 5 MG TAB PO ONE (09:30)
[2018-10-30] MEDS: DOCUSATE SODIUM 100 MG CAP PO SCH ×3 (09:47→20:08)
[2018-10-30] MEDS: FERROUS SULFATE (EC) 325 MG TAB PO SCH (09:47)
[2018-10-30] MEDS: ASCORBIC ACID 500 MG TAB PO SCH (09:48)
[2018-10-30] MEDS: predniSONE 2.5 MG TAB PO SCH (09:48)
[2018-10-30] MEDS: FOLIC ACID 1 MG TAB PO SCH (09:48)
--- NOTE | 2018-10-30 10:20 | NUR ---
PT NOTE DORIS Kirkland cleared pt for PT. Attempted to see pt however pt refused. Pt speaking on phone. Educated pt on benefits and importance of PT and OOB activities and despite max encouragement from this therapist, pt continued to refuse. Stated, "Can't you see I'm a little busy. Just come back later." Will f/u if time permits
--- NOTE | 2018-10-30 13:41 | PN ---
Date/Time of Note Date/Time of Note DATE: 10/30/18 TIME: 13:40 Assessment/Plan VTE Prophylaxis Risk score (from Nsg)>0 risk: 1 SCD applied (from Nsg): Yes Lines/Catheters IV Catheter Type (from Nrsg): Saline Lock Urinary Cath still in place: No Assessment/Plan Assessment/Plan - Chronic cholecystitis/cholelithiasis, Chylous ascites, Transverse colon nodules. S/p diagnostic laparoscopy, exploratory laparotomy, drainage of chylous ascites, biopsy of transverse colon mesenteric nodules and open cholecystectomy by on 10/27/2018. Continue IV fluids and postoperative antibiotic, pain management, patient is n.p.o., advance diet per surgery. - Rheumatoid arthritis, patient is on prednisone and methotrexate. Further recommendations based on clinical course. Plan of care discussed with Dr. Pruitt. Result Diagram: 10/30/182 10/30/18 0442 Results 24hrs Laboratory Tests Test 10/30/18 04:42 White Blood Count 4.0 L Red Blood Count 2.81 L Hemoglobin 9.3 L Hematocrit 29.2 L Mean Corpuscular Volume 103.9 H Mean Corpuscular Hemoglobin 33.1 H Mean Corpuscular Hemoglobin Concent 31.8 L Red Cell Distribution Width 15.5 H Platelet Count 84 L Mean Platelet Volume 11.8 H Immature Granulocytes % 0.500 H Neutrophils % 86.4 H Lymphocytes % 5.8 L Monocytes % 7.0 Eosinophils % 0.0 Basophils % 0.3 Nucleated Red Blood Cells % 0.0 Immature Granulocytes # 0.020 Neutrophils # 3.5 Lymphocytes # 0.2 L Monocytes # 0.3 Eosinophils # 0.0 Basophils # 0.0 Nucleated Red Blood Cells # 0.0 Sodium Level 140 Potassium Level 3.5 Chloride Level 107 Carbon Dioxide Level 27 Anion Gap 6 Blood Urea Nitrogen 12 Creatinine 0.60 Est Glomerular Filtrat Rate mL/min > 60 Glucose Level 94 Calcium Level 8.9 Subjective 24 Hr Interval Summary Free Text/Dictation - Possible DC am Exam/Review of Systems Vital Signs Vitals Vital Signs Date Temp Pulse Resp B/P (MAP) Pulse Ox O2 O2 Flow FiO2 Time Delivery Rate 10/30/18 98.4 83 18 126/72 99 07:47 (90) 10/27/18 Nasal 2.0 20:40 Cannula Intake and Output 10/29/18 10/29/18 10/30/18 1414:59 22:59 06:59 IntakeIntake Total 600 ml OutputOutput Total 400 ml BalanceBalance 200 ml Medications Medications Current Medications Oxycodone/ Acetaminophen (Percocet (5/ 325)) 1 tab Q6H PRN PO PAIN LEVEL 4-6 Last administered on 10/29/18 17:24; Admin Dose 1 TAB; Start 10/27/18 at 16:00 Acetaminophen (Tylenol Tab) 650 mg Q6H PRN PO MILD PAIN(1-3)OR ELEVATED TEMP; Start 10/27/18 at 16:00 Famotidine (Pepcid Iv) 20 mg Q12 IV Last administered on 10/29/18at 23:10; Admin Dose 20 MG; Start 10/27/18 at 21:00 Oxycodone/ Acetaminophen (Percocet (5/ 325)) 2 tab Q4H PRN PO MODERATE PAIN LEVEL 7-10 Last administered on 10/29/18at 23:10; Admin Dose 2 TAB; Start 10/27/18 at 16:00 Ergocalciferol (Drisdol) 50,000 unit Sa@0900 PO Last administered on 10/30/18 09:47; Admin Dose 50,000 UNIT; Start 10/30/18 at 09:00 Ferrous Sulfate (Ferrous Sulfate (Ec)) 325 mg DAILY PO Last administered on 10/30/18 09:47; Admin Dose 325 MG; Start 10/28/18 at 09:00 Folic Acid (Folic Acid) 1 mg DAILY PO Last administered on 10/30/18 09:48; Admin Dose 1 MG; Start 10/28/18 at 09:00 Prednisone (Prednisone) 2.5 mg DAILY PO Last administered on 10/30/18 09:48; Admin Dose 2.5 MG; Start 10/28/18 at 09:00 Pantoprazole (Protonix Tab) 40 mg DAILY@06 PO Last administered on 10/30/18 06:45; Admin Dose 40 MG; Start 10/28/18 at 06:00 Ascorbic Acid (Vitamin C) 1,000 mg DAILY PO Last administered on 10/30/18 09:48; Admin Dose 1,000 MG; Start 10/28/18 at 09:00 Metoclopramide HCl (Reglan) 5 mg Q6H PRN IV NAUSEA Last administered on 10/29/18 08:29; Admin Dose 5 MG; Start 10/28/18 at 09:30 Morphine Sulfate (morphine) 2 mg Q2H PRN IV PAIN LEVEL 6-10 Last administered on 10/29/18 03:22; Admin Dose 2 MG; Start 10/28/18 at 20:00 Docusate Sodium (Colace) 100 mg TID PO Last administered on 10/30/18at 12:49; Admin Dose 100 MG; Start 10/29/18 at 13:00 SARA NEGRETE Oct 30, 2018 13:41
[2018-10-30 14:22] VITALS: BP 121/76; PULSE 82; RESP 14
--- NOTE | 2018-10-30 17:20 | NUR ---
RN NOTE Dressing changed as per MD order. Patient tolerated well. Will continue to monitor.
--- NOTE | 2018-10-30 18:45 | NUR ---
RN NOTE Patient resting in bed. Verbalized no concerns at this time. Call light within reach. MD aware of patient status. Will continue to monitor until end of shift and endorse report, pending input/output, and pending orders to incoming RN for continuity of care.
[2018-10-30 19:57] VITALS: BP 128/74; PULSE 74; RESP 18
[2018-10-30] MEDS: OXYCODONE/ACETAMINOPHEN (5/325) TAB PO PRN ×2 (20:02→23:59)
--- NOTE | 2018-10-31 06:22 | NUR ---
EOSS: PATIENT STABLE DURING SHIFT, REQUESTED TWICE FOR PAIN MEDICATION WITH RELIEF. ABDOMINAL SX DRESSING C/D/I. NEEDS MET & ATTENDED. WILL CONTINUE WITH POC. CALL LIGHT WITHIN REACH.
[2018-10-31] MEDS: PANTOPRAZOLE (EC) 40 MG TAB PO SCH (06:40)
[2018-10-31 07:44] VITALS: BP 119/70; PULSE 77; RESP 14
[2018-10-31] MEDS: ASCORBIC ACID 500 MG TAB PO SCH (09:06)
[2018-10-31] MEDS: predniSONE 2.5 MG TAB PO SCH (09:06)
[2018-10-31] MEDS: DOCUSATE SODIUM 100 MG CAP PO SCH ×3 (09:06→21:00)
[2018-10-31] MEDS: FOLIC ACID 1 MG TAB PO SCH (09:06)
[2018-10-31] MEDS: FERROUS SULFATE (EC) 325 MG TAB PO SCH (09:06)
--- NOTE | 2018-10-31 09:10 | PN ---
Date/Time of Note Date/Time of Note DATE: 10/31/18 TIME: 09:09 Assessment/Plan Lines/Catheters IV Catheter Type (from Nrs): Saline Lock Bonilla in Place (from Nrs): No Assessment/Plan Assessment/Plan 58-year-old female status post exploratory laparotomy, drainage of chylous ascites, cholecystectomy postop day #4 * Out of bed/incentive spirometry/physical therapy * Etiology of chylous ascites unclear. On further questioning, patient states that after her hysterectomy which was last year she had an episode of abdominal distention for which a workup was done and 3 L of milky fluid was drained. She was told at that time that it was likely due to her rheumatoid arthritis. * Will give milk of magnesia * Continue medical management Subjective 24 Hr Interval Summary Feels weak. Pain is controlled. Tolerating diet. No bowel movement. Afebrile. Exam/Review of Systems Vital Signs Vitals Vital Signs Date Temp Pulse Resp B/P (MAP) Pulse Ox O2 O2 Flow FiO2 Time Delivery Rate 10/31/18 98.3 77 14 119/70 96 Room Air 07:44 (86) 10/27/18 2.0 20:40 Intake and Output 10/30/18 10/30/18 10/31/18 1414:59 22:59 06:59 IntakeIntake Total 860 ml 200 ml 300 ml OutputOutput Total 300 ml BalanceBalance 560 ml 200 ml 300 ml Exam Free Text/Dictation GENERAL: Awake, alert, oriented x 3. No acute distress. SKIN: No jaundice. HEENT: PERRLA, EOMI, No Scleral Icterus NECK: Supple without JVD CARDIOVASCULAR: S1S2, regular rate and rhythm. No murmurs appreciated. RESPIRATORY: Clear to auscultation bilaterally. ABDOMEN: Soft, bowel sounds present, nondistended, appropriate incisional tenderness to palpation INCISION: Clean, dry, intact EXTREMITIES: Changes of rheumatoid arthritis present Results Result Diagram: 10/30/1844110/30/18441 ANANTH JARAMILLO MD Oct 31, 2018 09:10
[2018-10-31] MEDS ORDERED: morphine 4 MG/ML VIAL IV PRN (09:30)
[2018-10-31] MEDS ORDERED: MAGNESIUM HYDROXIDE 30ML CUP PO ONE (09:30)
--- NOTE | 2018-10-31 12:00 | NUR ---
PATIENT ALERT , ORIENTED, VERBAL . VITALS STABLE. DIET TOLERATED . SEEN BY ANANTH LEE AND NEW ORDER RECEIVED FOR MOM , ORDER CARRIED OUT , PATIENT COMFORTABLE. . ASSISTED TO BED SIDE COMMODE FEW TIMES . NO COMPLAINTS OF PAIN. SURGICAL SITE IS INTACT AND DRESSING CHANGED. NO BLEEDING OR DRAINAGE NOTED. ALL SAFETY PRECAUTIONS MAINTAINED SUCH BED IN THE LOWEST [POSITION, ALARMS ON, BRAKES ON, CALL LIGHT WITH IN REACH. ENCOURAGED TO USE THE CALL LIGHT, WILL CONTINUE TO MONITOR.
--- NOTE | 2018-10-31 14:17 | PN ---
Date/Time of Note Date/Time of Note DATE: 10/31/18 TIME: 14:16 Assessment/Plan VTE Prophylaxis Risk score (from Nsg)>0 risk: 4 SCD applied (from Nsg): Yes Lines/Catheters IV Catheter Type (from Nrsg): Saline Lock Urinary Cath still in place: No Assessment/Plan Assessment/Plan - Chronic cholecystitis/cholelithiasis, Chylous ascites, Transverse colon nodules. S/p diagnostic laparoscopy, exploratory laparotomy, drainage of chylous ascites, biopsy of transverse colon mesenteric nodules and open cholecystectomy by on 10/27/2018. Continue IV fluids and postoperative antibiotic, pain management, patient is n.p.o., advance diet per surgery. - Rheumatoid arthritis, patient is on prednisone and methotrexate. Further recommendations based on clinical course. Plan of care discussed with Dr. Pruitt. Result Diagram: 10/30/1844110/30/18441 Exam/Review of Systems Vital Signs Vitals Vital Signs Date Temp Pulse Resp B/P (MAP) Pulse Ox O2 O2 Flow FiO2 Time Delivery Rate 10/31/18 98.3 77 14 119/70 96 Room Air 07:44 (86) 10/27/18 2.0 20:40 Intake and Output 10/30/18 10/30/18 10/31/18 1515:00 23:00 07:00 IntakeIntake Total 860 ml 200 ml 300 ml OutputOutput Total 300 ml BalanceBalance 560 ml 200 ml 300 ml Medications Medications Current Medications Oxycodone/ Acetaminophen (Percocet (5/ 325)) 1 tab Q6H PRN PO PAIN LEVEL 4-6 Last administered on 10/29/18at 17:24; Admin Dose 1 TAB; Start 10/27/18 at 16:00 Acetaminophen (Tylenol Tab) 650 mg Q6H PRN PO MILD PAIN(1-3)OR ELEVATED TEMP; Start 10/27/18 at 16:00 Oxycodone/ Acetaminophen (Percocet (5/ 325)) 2 tab Q4H PRN PO MODERATE PAIN LEVEL 7-10 Last administered on 10/30/18at 23:59; Admin Dose 2 TAB; Start 10/27/18 at 16:00 Ergocalciferol (Drisdol) 50,000 unit Sa@0900 PO Last administered on 10/30/18at 09:47; Admin Dose 50,000 UNIT; Start 10/30/18 at 09:00 Ferrous Sulfate (Ferrous Sulfate (Ec)) 325 mg DAILY PO Last administered on 10/31/18 09:06; Admin Dose 325 MG; Start 10/28/18 at 09:00 Folic Acid (Folic Acid) 1 mg DAILY PO Last administered on 10/31/18 09:06; Admin Dose 1 MG; Start 10/28/18 at 09:00 Prednisone (Prednisone) 2.5 mg DAILY PO Last administered on 10/31/18 09:06; Admin Dose 2.5 MG; Start 10/28/18 at 09:00 Pantoprazole (Protonix Tab) 40 mg DAILY@06 PO Last administered on 10/31/18 06:40; Admin Dose 40 MG; Start 10/28/18 at 06:00 Ascorbic Acid (Vitamin C) 1,000 mg DAILY PO Last administered on 10/31/18 09:06; Admin Dose 1,000 MG; Start 10/28/18 at 09:00 Metoclopramide HCl (Reglan) 5 mg Q6H PRN IV NAUSEA Last administered on 10/29/18 08:29; Admin Dose 5 MG; Start 10/28/18 at 09:30 Docusate Sodium (Colace) 100 mg TID PO Last administered on 10/31/18 09:06; Admin Dose 100 MG; Start 10/29/18 at 13:00 Morphine Sulfate (morphine) 2 mg Q4 PRN IV PAIN LEVEL 6-10; Start 10/31/18 at 09:30 SARA NEGRETE Oct 31, 2018 14:17
[2018-10-31 14:44] VITALS: BP 119/66; PULSE 68; RESP 14
[2018-10-31] MEDS: OXYCODONE/ACETAMINOPHEN (5/325) TAB PO PRN (16:39)
--- NOTE | 2018-10-31 18:42 | NUR ---
END OF SHIFT NOTE: PATIENT COMFORTABLE . VITALS STABLE. DIET TOLERATED . PAIN MANAGEMENT CONTINUED. SURGICAL SITE DRESSING STILL INTACT. NO BLEEDING DRAINAGE NOTED. NO COMPLAINTS OF NAUSEA OR VOMITING. ALL SAFETY PRECAUTIONS MAINTAINED. WILL CONTINUE TO MONITOR. CALL LIGHT WITHIN REACH.
[2018-10-31 19:26] VITALS: BP 115/63; PULSE 93; RESP 16
[2018-10-31] MEDS: METOCLOPRAMIDE 10 MG INJ IV PRN (21:02)
[2018-10-31] MEDS: METOCLOPRAMIDE 10 MG TAB PO PRN (21:56)
[2018-11-01 01:45] VITALS: BP 123/73; PULSE 104; RESP 16
[2018-11-01] MEDS: PANTOPRAZOLE (EC) 40 MG TAB PO SCH (05:25)
[2018-11-01] MEDS: FERROUS SULFATE (EC) 325 MG TAB PO SCH (07:46)
[2018-11-01] MEDS: predniSONE 2.5 MG TAB PO SCH (07:47)
[2018-11-01] MEDS: FOLIC ACID 1 MG TAB PO SCH (07:47)
[2018-11-01] MEDS: DOCUSATE SODIUM 100 MG CAP PO SCH ×3 (07:47→21:00)
[2018-11-01] MEDS: ASCORBIC ACID 500 MG TAB PO SCH (07:47)
[2018-11-01 07:55] VITALS: BP 101/65; PULSE 103; RESP 18
--- NOTE | 2018-11-01 08:15 | NUR ---
PT NOTE Therapy day number 3 Subjective Denies pain Pain Scale NUMERIC Pain Intensity 0 (0-10) Patient Stated Goal for Pain Relief 0 (0-10) Pain Level Comment deneis pain Pre Treatment Vital Signs Stable Yes - BP 105/60mmHg, HR 106bpm, 98% SpO2 R brachial semifowler Transfer Training Start Time 08:15 Supine to Sit Supervised Transfer Sit to Stand Ability Stand by Assist Bed Mobility Sit to Supine Stand by Assist Bed Transfer Ability Supervised Chair Transfer Ability Stand by Assist Sitting Tolerance 30 min Transfer Training End Time 08:40 Total Transfer Training Time 25 min (8-127) Gait Training Start Time 08:40 Gait Assist Levels Supervised Assistive Devices Front Wheel Walker Ambulation Distance 100 feet Additional Gait Comments 100'+40'+15' FWW Sup, recipr, no LOB/buckling, c/o nausea and fatigue Gait Training End Time 09:15 Total Gait Training Treatment Time 35 min (8-127) Static Sitting Balance Good Dynamic Sitting Balance Fair plus Standing Static Balance Fair plus Dynamic Standing Balance Fair plus Additional Balance Assessments Comments FWW Safety Judgement Good Activity Tolerance Fair Equipment Present A pump Post Treatment Pain Intensity 0 0-10 Variance Documentation nauseated Additional Post Treatment Comment See Below Total Treament Time 60 min (8-127) Total Minutes 60 Total Units 4 PT Technical Record Comment PT NOTE S: Pt agreeable to PT, states she had diarrhea all day yesterday. cleared for PT per DORIS Murrieta. O: Pt received semifowler in bed, talking on phone, agreeable, alert and oriented, in no apparent distress. Performed bed mobility, transfer tr, and gait training per tech record with supervised to SBA using FWW. Pt c/o little dizziness with sitting up at EOB, VS WNL. WC for return to room due to pt's c/o feeling weak and nauseated. MD Wright informed of pt status. Pt BTB and positioned for comfort in semifowler post tx with call light, breakfast tray and needs in reach, bed alarm armed, no in no apparent distress. A: Pt wes tx fairly, limitd by nausea and fatigue possibly 2/2 diarrhea P: Cont POC
--- NOTE | 2018-11-01 09:24 | PN ---
Date/Time of Note Date/Time of Note DATE: 11/01/18 TIME: 09:23 Assessment/Plan Lines/Catheters IV Catheter Type (from Nrs): Saline Lock Bonilla in Place (from Nrs): No Assessment/Plan Assessment/Plan 58-year-old female status post exploratory laparotomy, drainage of chylous ascites, cholecystectomy postop day #5 * Surgically stable for discharge home if medically cleared. * Follow-up in office in 1 week. Subjective 24 Hr Interval Summary Stable overnight. Tolerating diet. Had multiple bowel movements. Afebrile. Exam/Review of Systems Vital Signs Vitals Vital Signs Date Temp Pulse Resp B/P (MAP) Pulse Ox O2 O2 Flow FiO2 Time Delivery Rate 11/01/18 98.9 103 18 101/65 96 07:55 (77) 11/01/18 Room Air 01:45 Intake and Output 10/31/18 10/31/18 11/01/18 1515:00 23:00 07:00 IntakeIntake Total 800 ml 780 ml 280 ml OutputOutput Total 1 ml BalanceBalance 799 ml 780 ml 280 ml Exam Free Text/Dictation GENERAL: Awake, alert, oriented x 3. No acute distress. SKIN: No jaundice. HEENT: PERRLA, EOMI, No Scleral Icterus NECK: Supple without JVD CARDIOVASCULAR: S1S2, regular rate and rhythm. No murmurs appreciated. RESPIRATORY: Clear to auscultation bilaterally. ABDOMEN: Soft, bowel sounds present, nondistended, appropriate incisional tenderness to palpation INCISION: Clean, dry, intact EXTREMITIES: Changes of rheumatoid arthritis present Results Result Diagram: 11/01/18 0436 11/01/18 0436 ANANTH JARAMILLO MD Nov 01, 2018 09:24
[2018-11-01 14:54] VITALS: BP 111/67; PULSE 104; RESP 14
--- NOTE | 2018-11-01 17:14 | PN ---
Date/Time of Note Date/Time of Note DATE: 11/01/18 TIME: 17:13 Assessment/Plan VTE Prophylaxis Risk score (from Ns)>0 risk: 3 SCD applied (from Ns): Yes Pharmacological prophylaxis: NA/contraindicated Pharm contraindication: surgical contra Lines/Catheters [facility] Saline Lock Urinary Cath still in place: No Assessment/Plan Hospital Course Patient had 2 episodes of diarrhea today and complains of generalized weakness, will start IV fluids monitor electrolytes. Diarrhea could be in response to medication that was giving for constipation patient received Dulcolax and milk of magnesia yesterday. If patient condition improves, will anticipate to discharge patient home tomorrow Assessment/Plan - Chronic cholecystitis/cholelithiasis, Chylous ascites, Transverse colon nodules. S/p diagnostic laparoscopy, exploratory laparotomy, drainage of chylous ascites, biopsy of transverse colon mesenteric nodules and open cholecystectomy by Dr. Wright on 10/27/2018. Patient tolerates diet without nausea, pain is adequately controlled. - Rheumatoid arthritis, patient is on prednisone and methotrexate. Further recommendations based on clinical course. Plan of care discussed with Dr. Pruitt. Result Diagram: 11/01/18 0436 11/01/18 0436 Results 24hrs Laboratory Tests Test 11/01/18 04:36 White Blood Count 4.9 # Red Blood Count 2.91 L Hemoglobin 9.6 L Hematocrit 29.8 L Mean Corpuscular Volume 102.4 H Mean Corpuscular Hemoglobin 33.0 Mean Corpuscular Hemoglobin Concent 32.2 Red Cell Distribution Width 15.5 H Platelet Count 121 #L Mean Platelet Volume 12.2 H Immature Granulocytes % 0.600 H Neutrophils % 89.5 H Lymphocytes % 1.6 L Monocytes % 7.9 Eosinophils % 0.2 Basophils % 0.2 Nucleated Red Blood Cells % 0.0 Immature Granulocytes # 0.030 Neutrophils # 4.4 Lymphocytes # 0.1 L Monocytes # 0.4 Eosinophils # 0.0 Basophils # 0.0 Nucleated Red Blood Cells # 0.0 Sodium Level 137 Potassium Level 3.8 Chloride Level 103 Carbon Dioxide Level 24 Anion Gap 10 Blood Urea Nitrogen 11 Creatinine 0.52 Est Glomerular Filtrat Rate mL/min > 60 Glucose Level 108 Calcium Level 8.4 Exam/Review of Systems Vital Signs Vitals Vital Signs Date Temp Pulse Resp B/P (MAP) Pulse Ox O2 O2 Flow FiO2 Time Delivery Rate 11/01/18 98.3 104 14 111/67 96 Room Air 14:54 (82) Intake and Output 10/31/18 10/31/18 11/01/18 1414:59 22:59 06:59 IntakeIntake Total 800 ml 780 ml 280 ml OutputOutput Total 1 ml BalanceBalance 799 ml 780 ml 280 ml Exam Constitutional: alert, oriented Respiratory: clear to auscultation Cardiovascular: nl pulse Gastrointestinal: soft, other (Status post surgery) Musculoskeletal: nl extremities to inspection Extremities: normal pulses Neurological: nl mental status Skin: nl turgor Medications Medications Current Medications Oxycodone/ Acetaminophen (Percocet (5/ 325)) 1 tab Q6H PRN PO PAIN LEVEL 4-6 Last administered on 10/31/18at 16:39; Admin Dose 1 TAB; Start 10/27/18 at 16:00 Acetaminophen (Tylenol Tab) 650 mg Q6H PRN PO MILD PAIN(1-3)OR ELEVATED TEMP; Start 10/27/18 at 16:00 Oxycodone/ Acetaminophen (Percocet (5/ 325)) 2 tab Q4H PRN PO MODERATE PAIN LEVEL 7-10 Last administered on 10/30/18at 23:59; Admin Dose 2 TAB; Start 10/27/18 at 16:00 Ergocalciferol (Drisdol) 50,000 unit Sa@0900 PO Last administered on 10/30/18at 09:47; Admin Dose 50,000 UNIT; Start 10/30/18 at 09:00 Ferrous Sulfate (Ferrous Sulfate (Ec)) 325 mg DAILY PO Last administered on 11/01/18at 07:46; Admin Dose 325 MG; Start 10/28/18 at 09:00 Folic Acid (Folic Acid) 1 mg DAILY PO Last administered on 11/01/18at 07:47; Admin Dose 1 MG; Start 10/28/18 at 09:00 Prednisone (Prednisone) 2.5 mg DAILY PO Last administered on 11/01/18at 07:47; Admin Dose 2.5 MG; Start 10/28/18 at 09:00 Pantoprazole (Protonix Tab) 40 mg DAILY@06 PO Last administered on 11/01/18at 05:25; Admin Dose 40 MG; Start 10/28/18 at 06:00 Ascorbic Acid (Vitamin C) 1,000 mg DAILY PO Last administered on 11/01/18 07:47; Admin Dose 1,000 MG; Start 10/28/18 at 09:00 Docusate Sodium (Colace) 100 mg TID PO Last administered on 11/01/18at 07:47; Admin Dose 100 MG; Start 10/29/18 at 13:00 Morphine Sulfate (morphine) 2 mg Q4 PRN IV PAIN LEVEL 6-10; Start 10/31/18 at 09:30 Metoclopramide HCl (Reglan) 10 mg Q6H PRN PO NAUSEA Last administered on 10/31/18at 21:56; Admin Dose 10 MG; Start 10/31/18 at 22:00 DELMA PRICE Nov 01, 2018 17:14
--- NOTE | 2018-11-01 19:00 | NUR ---
EOSS: Pt denied pain throughout shift. Vitals remain stable, pt remains A&Ox4. Pt reporting feeling weak. Pt had diarrhea x2 during shift and has poor appetite. Fluids and food encouraged. Michelle ALLERGY PHYSICIAN informed regarding weakness, diarrhea, and appetite. New orders for fluids received. Abdominal dressing removed by doctor. Call light within reach and bed alarm on.
[2018-11-01 19:32] VITALS: BP 110/70; PULSE 60; RESP 16
[2018-11-01] MEDS: 1/2 NS + KCL 20 MEQ 1,000 ML IV SCH (22:10)
--- NOTE | 2018-11-01 23:41 | NUR ---
REPORTS GIVEN TO RUBEN GEORGE FOR CONTINUITY OF CARE.
[2018-11-02] MEDS: OXYCODONE/ACETAMINOPHEN (5/325) TAB PO PRN (00:09)
[2018-11-02 01:39] VITALS: BP 122/77; PULSE 68; RESP 16
[2018-11-02] MEDS: PANTOPRAZOLE (EC) 40 MG TAB PO SCH (05:26)
--- NOTE | 2018-11-02 05:56 | NUR ---
EOSS: Alert, oriented x4, breathing even and unlabored. Continue IVF via left hand HC, c/o back pain, rates it 8/10 but prefers to get only one Percocet. Pt able to sleep comfortably afterwards. afebrile, no signs of infection at surgical incision site. To continue with current plan of care.
[2018-11-02] MEDS: 1/2 NS + KCL 20 MEQ 1,000 ML IV SCH ×2 (06:00→09:57)
[2018-11-02 08:45] VITALS: BP 128/70; RESP 18
--- NOTE | 2018-11-02 08:53 | PN ---
Date/Time of Note Date/Time of Note DATE: 11/02/18 TIME: 08:51 Assessment/Plan Lines/Catheters IV Catheter Type (from Nrs): Peripheral IV Bonilla in Place (from Nrs): No Assessment/Plan Assessment/Plan 58-year-old female status post exploratory laparotomy, drainage of chylous ascites, cholecystectomy postop day #6 * D/C Narcotics * D/C Colace * Surgically stable for discharge home if medically cleared. * Follow-up in office in 1 week. Subjective 24 Hr Interval Summary Remains stable. Tolerating diet. Having bowel movements. Afebrile. Exam/Review of Systems Vital Signs Vitals Vital Signs Date Temp Pulse Resp B/P (MAP) Pulse Ox O2 O2 Flow FiO2 Time Delivery Rate 11/02/18 98.9 68 16 122/77 96 Room Air 01:39 (92) Intake and Output 11/01/18 11/01/18 11/02/18 1515:00 23:00 07:00 IntakeIntake Total 300 ml 880 ml OutputOutput Total 200 ml 200 ml BalanceBalance 100 ml 680 ml Exam Free Text/Dictation GENERAL: Awake, alert, oriented x 3. No acute distress. SKIN: No jaundice. HEENT: PERRLA, EOMI, No Scleral Icterus NECK: Supple without JVD CARDIOVASCULAR: S1S2, regular rate and rhythm. No murmurs appreciated. RESPIRATORY: Clear to auscultation bilaterally. ABDOMEN: Soft, bowel sounds present, nondistended, minimal incisional tenderness to palpation INCISION: Clean, dry, intact EXTREMITIES: Changes of rheumatoid arthritis present Results Result Diagram: 11/02/1844011/02/18440 ANANTH JARAMILLO MD Nov 02, 2018 08:53
[2018-11-02] MEDS: FERROUS SULFATE (EC) 325 MG TAB PO SCH (09:51)
[2018-11-02] MEDS: predniSONE 2.5 MG TAB PO SCH (09:51)
[2018-11-02] MEDS: FOLIC ACID 1 MG TAB PO SCH (09:51)
[2018-11-02] MEDS: ASCORBIC ACID 500 MG TAB PO SCH (09:51)
--- NOTE | 2018-11-02 14:30 | NUR ---
PT NOTE [facility] Patient: Shea Briceño : 1960 Age/Sex: 58/F Unit#: [id number] Room/Bed: 407/A User: Halley Bonilla PTA Date: 11/02/18 14:05 Type: PT Technical Record Therapy day number 4 Subjective Current complaint of pain Pain Scale NUMERIC Pain Intensity 10 (0-10) Patient Stated Goal for Pain Relief 0 (0-10) Pain Level Comment abdominal/incisional pain; gas; premedicated Transfer Training Start Time 14:05 Supine to Sit Minimum Assist Transfer Sit to Stand Ability Contact Guard Assist Bed Mobility Sit to Supine Minimum Assist Additional Mobility Comments HOB elevated, Min A with scooting and B LEs Transfer Training End Time 14:15 Total Transfer Training Time 10 min (8-127) Gait Training Start Time 14:16 Gait Assist Levels Stand by Assist Assistive Devices Front Wheel Walker Ambulation Distance 100 feet Additional Gait Comments reciprocal gait, very slow cyn Gait Training End Time 14:30 Total Gait Training Treatment Time 14 min (8-127) Static Sitting Balance Good Dynamic Sitting Balance Fair plus Standing Static Balance Fair plus Dynamic Standing Balance Fair Additional Balance Assessments Comments with FWW Safety Judgement Good Activity Tolerance Fair Equipment Present A pump IV pump Post Treatment Pain Intensity 7 0-10 Additional Post Treatment Comment see PT note Total Treament Time 24 min (8-127) Total Minutes 24 Total Units 2 PT Technical Record Comment PT NOTE S: "I want to get up and walk. I think that will help with my gas." Agreed to skilled PT. Cleared and premedicated by DORIS Youssef. O: Received awake in semi-mittal. See tech record for assist levels. DISPATCHER [employer] SLURRY with transfer to EOB. STS with FWW. Gait training with FWW, reciprocal gait, very slow cyn, no LOB, occasional standing pause to belch, poor posture. Returned back to room d/t fatigue. B LE assist back to bed into long sit. Elevated HOB d/t pain with lowering to supine. Left in semi-mittal, call light and all necessities within reach, dietary at bedside. Informed RN. A: Pt wes tx fairly. Increased abdominal pain this session but reported improved level of pain post tx. P: Continue with POC. Review log roll technique.
--- NOTE | 2018-11-02 15:04 | NUR ---
NUTRITION NOTE: Pt is 58-year-old female status post exploratory laparotomy, drainage of chylous ascites, cholecystectomy. Pt seen just finishing PT session. Reports she has had poor appetite, eating ~25-50% at meals. On puree diet per pt request. Reports still having some difficulty swallowing, however expressed that she does not like [facility]. Denies n/v/d. Agreeable to add Boost TID and sherbert at lunch and dinner. LBM 11/02. Recommend for a AVIATION NEUROPSYCHOLOGIST swallow evaluation to assess if diet upgrades would be feasible to help optimize PO intake.
[2018-11-02 15:39] VITALS: BP_SYST 111; RESP 18
--- NOTE | 2018-11-02 17:16 | PN ---
Date/Time of Note Date/Time of Note DATE: 11/02/18 TIME: 17:15 Assessment/Plan VTE Prophylaxis Risk score (from Ns)>0 risk: 4 SCD applied (from Ns): Yes Pharmacological prophylaxis: NA/contraindicated Pharm contraindication: surgical contra, other Lines/Catheters [facility] Peripheral IV Urinary Cath still in place: No Assessment/Plan Hospital Course No diarrhea today patient complains of generalized weakness however able to work with physical therapy complains of pain continue PT continue current care, DC planning tomorrow in a.m. Assessment/Plan - Chronic cholecystitis/cholelithiasis, Chylous ascites, Transverse colon nodules. S/p diagnostic laparoscopy, exploratory laparotomy, drainage of chylous ascites, biopsy of transverse colon mesenteric nodules and open cholecystectomy by Dr. Wright on 10/27/2018. Patient tolerates diet without nausea, pain is adequately controlled. - Rheumatoid arthritis, patient is on prednisone and methotrexate. Further recommendations based on clinical course. Plan of care discussed with Dr. Pruitt. Result Diagram: 11/02/18 0441 11/02/18 0441 Results 24hrs Laboratory Tests Test 11/02/18 04:41 11/02/18 07:52 White Blood Count 2.6 #L Red Blood Count 2.86 L Hemoglobin 9.3 L Hematocrit 29.7 L Mean Corpuscular Volume 103.8 H Mean Corpuscular Hemoglobin 32.5 Mean Corpuscular Hemoglobin Concent 31.3 L Red Cell Distribution Width 15.5 H Platelet Count 127 L Mean Platelet Volume 11.6 H Immature Granulocytes % 0.400 Neutrophils % 78.4 H Lymphocytes % 9.8 L Monocytes % 10.6 Eosinophils % 0.8 Basophils % 0.0 Nucleated Red Blood Cells % 0.0 Immature Granulocytes # 0.010 Neutrophils # 2.0 Lymphocytes # 0.3 L Monocytes # 0.3 Eosinophils # 0.0 Basophils # 0.0 Nucleated Red Blood Cells # 0.0 Sodium Level 138 Potassium Level 3.7 Chloride Level 103 Carbon Dioxide Level 27 Anion Gap 8 Blood Urea Nitrogen 9 Creatinine 0.58 Est Glomerular Filtrat Rate mL/min > 60 Glucose Level 93 Calcium Level 8.6 Lab Scanned Report REFERENCE LAB Exam/Review of Systems Vital Signs Vitals Vital Signs Date Temp Pulse Resp B/P (MAP) Pulse Ox O2 O2 Flow FiO2 Time Delivery Rate 11/02/18 98.2 18 111/ 98 Room Air 15:39 11/02/18 68 01:39 Intake and Output 11/01/18 11/01/18 11/02/18 1515:00 23:00 07:00 IntakeIntake Total 300 ml 880 ml OutputOutput Total 200 ml 200 ml BalanceBalance 100 ml 680 ml Exam Constitutional: alert, oriented Respiratory: clear to auscultation Cardiovascular: nl pulse Gastrointestinal: soft, other (Status post surgery) Musculoskeletal: nl extremities to inspection Extremities: normal pulses Neurological: nl mental status Skin: nl turgor Medications Medications Current Medications Acetaminophen (Tylenol Tab) 650 mg Q6H PRN PO MILD PAIN(1-3)OR ELEVATED TEMP Last administered on 11/02/18 16:32; Admin Dose 650 MG; Start 10/27/18 at 16:00 Ergocalciferol (Drisdol) 50,000 unit Sa@0900 PO Last administered on 10/30/18 09:47; Admin Dose 50,000 UNIT; Start 10/30/18 at 09:00 Ferrous Sulfate (Ferrous Sulfate (Ec)) 325 mg DAILY PO Last administered on 11/02/18 09:51; Admin Dose 325 MG; Start 10/28/18 at 09:00 Folic Acid (Folic Acid) 1 mg DAILY PO Last administered on 11/02/18 09:51; Admin Dose 1 MG; Start 10/28/18 at 09:00 Prednisone (Prednisone) 2.5 mg DAILY PO Last administered on 11/02/18 09:51; Admin Dose 2.5 MG; Start 10/28/18 at 09:00 Pantoprazole (Protonix Tab) 40 mg DAILY@06 PO Last administered on 11/02/18 05:26; Admin Dose 40 MG; Start 10/28/18 at 06:00 Ascorbic Acid (Vitamin C) 1,000 mg DAILY PO Last administered on 11/02/18 09:51; Admin Dose 1,000 MG; Start 10/28/18 at 09:00 Morphine Sulfate (morphine) 2 mg Q4 PRN IV PAIN LEVEL 6-10; Start 10/31/18 at 09:30 Metoclopramide HCl (Reglan) 10 mg Q6H PRN PO NAUSEA Last administered on 10/31/18 21:56; Admin Dose 10 MG; Start 10/31/18 at 22:00 Potassium Chloride/Sodium Chloride 1,000 ml @ 80 mls/hr [id number] IV Last administered on 11/02/18at 09:57; Admin Dose 80 MLS/HR; Start 11/01/18 at 17:30 DELMA PRICE Nov 02, 2018 17:15
[2018-11-02] MEDS ORDERED: OXYCODONE/ACETAMINOPHEN (5/325) TAB PO ONE (18:00)
--- NOTE | 2018-11-02 18:21 | NUR ---
END OF SHIFT NOTE Midline incision with marcia dry and intact and open to air. Abdominal binder in place. Order for one time Percocet 2 tab given for severe pain. Ambulates with assist to toilet to void. Tolerating mechanical soft diet well. Passing gas. Bed in lowest position and call light within reach.
[2018-11-02 19:33] VITALS: BP 132/74; PULSE 56; RESP 16
[2018-11-02] MEDS: METOCLOPRAMIDE 10 MG TAB PO PRN (19:53)
[2018-11-03 01:21] VITALS: BP 127/66; PULSE 88; RESP 16
--- NOTE | 2018-11-03 05:40 | NUR ---
end of shift reports: patient rested throughout the night. had episode of nausea x1 last night, medicated with reglan 10po. afebrile. walked to the bathroom with walker,voided. patient is comfortable,no complain of pain.
[2018-11-03] MEDS: PANTOPRAZOLE (EC) 40 MG TAB PO SCH (06:34)
[2018-11-03] MEDS: 1/2 NS + KCL 20 MEQ 1,000 ML IV SCH (07:00)
[2018-11-03 07:55] VITALS: BP 110/72; PULSE 92; RESP 18
[2018-11-03] MEDS: FERROUS SULFATE (EC) 325 MG TAB PO SCH (09:22)
[2018-11-03] MEDS: FOLIC ACID 1 MG TAB PO SCH (09:22)
[2018-11-03] MEDS: ASCORBIC ACID 500 MG TAB PO SCH (09:22)
[2018-11-03] MEDS: predniSONE 2.5 MG TAB PO SCH (09:22)
[2018-11-03] MEDS: METOCLOPRAMIDE 10 MG TAB PO PRN (09:30)
--- NOTE | 2018-11-03 10:53 | NUR ---
PT NOTE Therapy day number 5 Subjective Denies pain Pain Scale FACES Pain Intensity 0 (0-10) Patient Stated Goal for Pain Relief 0 (0-10) Pain Level Comment no c/o pain Pre Treatment Vital Signs Stable Yes Exercise Start Time 10:53 Exercise End Time 11:03 Total Exercise Time 10 min (8-127) Transfer Training Start Time 11:03 Supine to Sit Stand by Assist Transfer Sit to Stand Ability Stand by Assist Bed Mobility Sit to Supine Stand by Assist Bed Transfer Ability Stand by Assist Chair Transfer Ability Stand by Assist Sitting Tolerance 25 min Additional Mobility Comments log rolling with good return demo bed flat/no BR, STS with FWW Transfer Training End Time 11:18 Total Transfer Training Time 15 min (8-127) Gait Training Start Time 11:18 Gait Assist Levels Stand by Assist Assistive Devices Front Wheel Walker Ambulation Distance 150 feet Additional Gait Comments 150'+150', seated rest break, no LOB, decr cyn, reciprocal pattern Gait Training End Time 11:32 Total Gait Training Treatment Time 14 min (8-127) Stair Training Start Time 11:32 Stair Climbing Ability Stand by Assist Number of Stairs 8 Stairs Additional Stairs Assist Comments 4 stairs up/down x2 using 2 HR, no LOB/buckling Stair Training End Time 11:46 Total Stair Training Time 14 min (8-127) Static Sitting Balance Good Dynamic Sitting Balance Fair plus Standing Static Balance Fair plus Dynamic Standing Balance Fair Additional Balance Assessments Comments with FWW Safety Judgement Good Activity Tolerance Fair Equipment Present A pump Post Treatment Pain Intensity 0 0-10 Additional Post Treatment Comment See BElow Total Treament Time 53 min (8-127) Total Minutes 53 Total Units 4 PT Technical Record Comment PT NOTE S: Pt agreeable to PT, cleared for PT per DORIS Bethea. O: Pt received sitting in chair, alert and oriented, in no apparent distress. Performed bed mobility, transfer tr, stair tr and gait training per tech record with SBA using FWW. Pt BTB via log rolling and positioned for comfort in semifowler post tx with call light and needs in reach, bed alarm armed, no in no apparent distress. A: Pt wes tx fairly, [place] for PT since last tx. Pt responded well to log rolling to decrease abdominal pain and increase independence with sup<>sit P: Cont POC
[2018-11-03] MEDS ORDERED: METO10TA3 PO (13:58)
[2018-11-03 14:00] VITALS: BP 116/70; PULSE 80; RESP 18
--- NOTE | 2018-11-03 14:45 | PN ---
Date/Time of Note Date/Time of Note DATE: 11/03/18 TIME: 14:44 Assessment/Plan Lines/Catheters IV Catheter Type (from Nrs): Peripheral IV Bonilla in Place (from Nrs): No Assessment/Plan Assessment/Plan 58-year-old female status post exploratory laparotomy, drainage of chylous ascites, cholecystectomy postop day #7 * Surgically stable for discharge home if medically cleared. * Follow-up in office in 1 week. Subjective 24 Hr Interval Summary Remains stable. Afebrile. Exam/Review of Systems Vital Signs Vitals Vital Signs Date Temp Pulse Resp B/P (MAP) Pulse Ox O2 O2 Flow FiO2 Time Delivery Rate 11/03/18 99.1 92 18 110/72 98 Room Air 07:55 (85) Intake and Output 11/02/18 11/02/18 11/03/18 1515:00 23:00 07:00 IntakeIntake Total 1000 ml 1410 ml 1300 ml OutputOutput Total 4 ml BalanceBalance 1000 ml 1406 ml 1300 ml Exam Free Text/Dictation GENERAL: Awake, alert, oriented x 3. No acute distress. SKIN: No jaundice. HEENT: PERRLA, EOMI, No Scleral Icterus NECK: Supple without JVD CARDIOVASCULAR: S1S2, regular rate and rhythm. No murmurs appreciated. RESPIRATORY: Clear to auscultation bilaterally. ABDOMEN: Soft, bowel sounds present, nondistended, minimal incisional tenderness to palpation INCISION: Clean, dry, intact EXTREMITIES: Changes of rheumatoid arthritis present Results Result Diagram: 11/02/1844011/02/18440 ANANTH JARAMILLO MD Nov 03, 2018 14:45
--- NOTE | 2018-11-03 15:23 | NUR ---
discharge note Patient educated by charge nurse Analissa on all d/c instructions, prescription and patient health summary. IV access removed and dry gauze applied. Patient denied experiencing any pain/discomfort. Patient verbalized understanding all information explained. Patient scheduled to received HH, and home PT follow up. Patient sent down via wheelchair escorted by charge nurse. Son available for pickle sorter. Patient stable at that time.
--- NOTE | 2018-11-03 16:20 | NUR ---
CM NOTES: THIS CM DID CHART REVIEWS AND FAXED ALL UPDATE CONCURRENT REVIEWS PLUS MD NOTES TO VERONIKA BASS/LASHANDA, (F) ANDERS [phone] (F). WILL CALL [facility] FOR HH PER MD ORDER. WILL FOLLOW UP. LUIS FELIPE HASKINS LEAD LISSETH [phone]
--- NOTE | 2018-11-03 23:02 | DS ---
Date/Time of Note Date/Time of Note DATE: 11/03/18 TIME: 22:56 Discharge Summary Admission/Discharge Info Admit Date/Time Oct 27, 2018 at 15:43 Discharge Date/Time Nov 03, 2018 at 15:10 Patient Condition: Stable Hx of Present Illness The patient is a 58-year-old female with history of rheumatoid arthritis on prednisone at home. Patient was evaluated in general surgery consultation for right upper quadrant abdominal pain. Patient symptoms consistent with chronic cholecystitis and biliary colic's. Ultrasound revealed presence of gallstones. Patient was brought to the hospital and underwent diagnostic laparoscopy, e xploratory laparotomy, drainage of chylous ascites, biopsy of transverse colon mesenteric nodules and open cholecystectomy by Dr. Wright. Postoperatively patient complains of significant abdominal pain. Patient will be admitted for further evaluation and management. Hospital Course Pt d/john home with services - Chronic cholecystitis/cholelithiasis, Chylous ascites, Transverse colon nodules. S/p diagnostic laparoscopy, exploratory laparotomy, drainage of chylous ascites, biopsy of transverse colon mesenteric nodules and open cholecystectomy by Dr. Wright on 10/27/2018. Patient tolerates diet without nausea, pain is adequately controlled. D/ded with prescription for [place] PRN for pain by Dr Wright. - Rheumatoid arthritis, patient is on prednisone and methotrexate. Plan of care discussed with Dr. Pruitt. Home Meds Active Scripts Metoclopramide Hcl* (Metoclopramide Hcl*) 10 Mg Tablet, 10 MG PO Q6H PRN for NAUSEA, #30 TAB Prov:DELMA PRICE 11/03/18 Reported Medications Ibuprofen* (Motrin*) 600 Mg Tab, 600 MG PO BID PRN for PAIN, TAB 10/27/18 Ascorbic Acid* (Vitamin C*) 500 Mg Capsule.sa, 500 MG PO DAILY, CAP 10/27/18 Ergocalciferol (Vitamin D2) (VITAMIN D2) 50,000 Unit Capsule, 87407 UNIT PO EVERY THURSDAY, CAP 10/27/18 Methotrexate* (Methotrexate*) 2.5 Mg Tab, 15 MG PO EVERY THURSDAY, TAB 10/27/18 Folic Acid* (Folic Acid*) 1 Mg Tablet, 1 MG PO DAILY, TAB 10/27/18 Omeprazole* (Omeprazole*) 40 Mg Capsule., 40 MG PO DAILY, #30 CAP 10/27/18 Ferrous Sulfate* (Ferrous Sulfate*) 325 Mg Tabec, 325 MG PO DAILY, TAB 10/27/18 Prednisone* (Prednisone*) 2.5 Mg Tablet, 2.5 MG PO DAILY, TAB 10/27/18 Discontinued Reported Medications Methotrexate* (Methotrexate*) 2.5 Mg Tab, 5 MG PO TID, TAB 06/01/15 Prednisone* (Prednisone*) 2.5 Mg Tablet, 7.5 MG PO DAILY, TAB 06/01/15 Cholecalciferol* (Vitamin D3*) 1,000 Unit Tablet, 1000 UNIT PO q week 05/17/13 Folic Acid* (Folic Acid*) 1 Mg Tablet, 1 MG PO DAILY 05/17/13 Discontinued Scripts Bacitracin* (Bacitracin Zinc Oint*) 28.35 Gm Oint, 1 APPLIC TOP BID, #1 TUB APPLI TO Prov:LIBERTAD GOMEZ PA-C 02/12/18 Hydrocodone/Acetaminophen ([place] 5-325 Tablet) 1 Each Tablet, 1 TAB PO Q6H PRN for PAIN, #7 TAB Prov:LIBERTAD GOMEZ PA-C 02/12/18 Follow-up Plan Follow-up with Dr. Wright in 1 week Primary Care Provider Not On Staff Doctor Time spent on discharge: > 30 minutes DELMA PRICE Nov 03, 2018 23:02
== END 2018-11-03 15:10 | disposition home health service (06) | DRG 415 ==
LOC: SDS 09:59 → REC 15:43 → MS1 21:02
PROVIDERS: ADMIT Surgery; ATTEND Surgery
PROC: 0W9G0ZX Drainage of Peritoneal Cavity, Open Approach, Diagnostic (ICD-10-PCS; 2018-10-27)
PROC: 0DBL0ZX Excision of Transverse Colon, Open Approach, Diagnostic (ICD-10-PCS; 2018-10-27)
PROC: 0FJ44ZZ Inspection of Gallbladder, Percutaneous Endoscopic Approach (ICD-10-PCS; 2018-10-27)
PROC: 0FT40ZZ Resection of Gallbladder, Open Approach (ICD-10-PCS; principal; 2018-10-27 12:30)
DX: K80.10 Calculus of gallbladder with chronic cholecystitis without obstruction (principal); R18.8 Other ascites; D37.4 Neoplasm of uncertain behavior of colon; M06.9 Rheumatoid arthritis, unspecified; Z90.710 Acquired absence of both cervix and uterus; Z98.51 Tubal ligation status
CPT/HCPCS: 80048; 80053; 82042; 82150; 83615; 84157; 85025; 87070; 87075; 87086; 88104; 88107; 88304; 88305; 88313; 88331; 89051; 93005; 97110; 97116; 97162; 97530; J0690; J1100; J1170; J1720; J2175; J2250; J2270; J2274; J2405; J2765; J2795; J3010; J3480; J7030; J7512